=== PATIENT | female | born 1990 | race Caucasian/White ===

== ENCOUNTER 2016-07-20 09:44 | Emergency (ER) | payer OTHER ==
[2016-07-20 10:05] VITALS: RESP 18
[2016-07-20] MEDS ORDERED: DEXAMETHASONE SOD PHOSPHATE 10 MG/ML 1 ML VIAL IM STA (10:52)
[2016-07-20] MEDS ORDERED: AMOXIC-POT CLAV 875-125MG 1 EACH TAB PO STA (10:52)
--- NOTE | 2016-07-20 10:53 | ED ---
General Adult HPI - General Chief complaint: ENT Stated complaint: Hx strep throat, not getting better Time Seen by Provider: 07/20/16 10:35 Source: patient, RN notes reviewed, old records reviewed Mode of arrival: ambulatory Limitations: no limitations - History of Present Illness Initial comments: This is a 26-year-old female here for evaluation of sore throat. Patient has severe sore throat, occasional inconsistent fever, difficulty with swallow. No medical history no travel history. Patient is recent diagnosis of strep throat as well as formal diagnosis of strep throat with positive strep test. Patient states she took] as directed with no improvement. She has no ALLERGIES. She has been taking antibiotic as prescribed - Related Data Previous Rx's Medication Instructions Recorded Amoxicillin/Potassium Clav 1 tab PO Q12HR #20 tab 07/20/16 [Augmentin 875-125 Tablet] Allergies Allergy/AdvReac Type Severity Reaction Status Date / Time No Known Allergies Allergy Verified 07/20/16 10:05 Review of Systems ROS Statement: Those systems with pertinent positive or pertinent negative responses have been documented in the HPI. ROS Other: All systems not noted in ROS Statement are negative. Past Medical History Past Medical History: Asthma History of Any Multi-Drug Resistant Organisms: None Reported Additional Past Surgical History / Comment(s): foreign body removal from (R) foot Past Psychological History: ADD/ADHD Smoking Status: Former smoker Past Alcohol Use History: Rare Past Drug Use History: None Reported General Exam Limitations: no limitations General appearance: alert, in no apparent distress Head exam: Present: atraumatic, normocephalic, normal inspection Eye exam: Present: normal appearance, PERRL, EOMI. Absent: scleral icterus, conjunctival injection, periorbital swelling ENT exam: Present: normal exam, mucous membranes moist Neck exam: Present: normal inspection. Absent: tenderness, meningismus, lymphadenopathy Respiratory exam: Present: normal lung sounds bilaterally. Absent: respiratory distress, wheezes, rales, rhonchi, stridor Cardiovascular Exam: Present: regular rate, normal rhythm, normal heart sounds. Absent: systolic murmur, diastolic murmur, rubs, gallop, clicks GI/Abdominal exam: Present: soft, normal bowel sounds. Absent: distended, tenderness, guarding, rebound, rigid Extremities exam: Present: normal inspection, full ROM, normal capillary refill. Absent: tenderness, pedal edema, joint swelling, calf tenderness Back exam: Present: normal inspection Neurological exam: Present: alert, oriented X3, CN II-XII intact Psychiatric exam: Present: normal affect, normal mood Skin exam: Present: warm, dry, intact, normal color. Absent: rash Course Vital Signs 07/20/16 07/20/16 10:03 11:10 Temperature 98.1 F 98.0 F Pulse Rate 93 75 Respiratory 18 18 Rate Blood Pressure 115/74 115/69 O2 Sat by Pulse 98 100 Oximetry - Reevaluation(s) Reevaluation #1: 07/20/16 12:52 We will switch patient's antibiotic to Augmentin and patient can be discharged home Medical Decision Making - Medical Decision Making 26 female year prevention of fever sore throat. No trismus on exam, no significant edema Patient with transferred antibiotic, patient did have positive stress Test will be discharged home Disposition Clinical Impression: Streptococcal sore throat Disposition: HOME SELF-CARE Condition: Good Instructions: Strep Throat (ED) Prescriptions: Amoxicillin/Potassium Clav [Augmentin 875-125 Tablet] 1 tab PO Q12HR #20 tab Referrals: None,Stated [Primary Care Provider] - 1-2 days
[2016-07-20 11:12] VITALS: BP 115/69; PULSE 75; TEMP 98
== END 2016-07-20 11:11 | disposition home or self-care (01) ==
LOC: EC 09:44
DX: J02.0 Streptococcal pharyngitis (principal); Z87.891 Personal history of nicotine dependence
CPT/HCPCS: 99283; 96372; J1100

== ENCOUNTER 2016-10-29 20:05 | Emergency (ER) | payer OTHER ==
[2016-10-29 21:10] VITALS: TEMP 98.2
[2016-10-29] MEDS ORDERED: SODIUM CHLORIDE 0.9% 1,000 ML IV STA (21:32)
[2016-10-29] MEDS ORDERED: ONDANSETRON 4 MG/2 ML VIAL IVP STA (21:32)
[2016-10-29] MEDS ORDERED: MORPHINE SULFATE 4 MG/ML SYRINGE IV STA (21:32)
--- NOTE | 2016-10-29 22:04 | ED ---
Chest Pain HPI - General Chief Complaint: Chest Pain Stated Complaint: Chest Pain Time Seen by Provider: 10/29/16 21:10 Source: patient Mode of arrival: ambulatory Limitations: no limitations - History of Present Illness Initial Comments: 26 years old female presented with the chest pain, started 2 PM today, at that time she was at work. Chest pain is located on the left side of the chest she also noticed some some tingling in the left arm and chest pain is worse with deep breaths. She. Had a chest pain episode she has no prior history of heart disease. She does smoke and no history of control pills as such but she does have an IUD. Does use Adderall daily for and smokes pot regularly she denies any cocaine or any other street drugs use over the last few days she had a nausea. Denies any vomiting no cold sweats hard to head or disease at the age of 63 and mom is - Related Data Home Medications Medication Instructions Recorded Confirmed Dextroamphetamine/Amphetamine 15 mg PO QAM 10/29/16 10/29/16 [Adderall Xr] Dextroamphetamine/Amphetamine 10 mg PO DAILY@1400 PRN 10/29/16 10/29/16 [Adderall] Allergies Allergy/AdvReac Type Severity Reaction Status Date / Time No Known Allergies Allergy Verified 10/29/16 21:39 Review of Systems ROS Statement: Those systems with pertinent positive or pertinent negative responses have been documented in the HPI. ROS Other: All systems not noted in ROS Statement are negative. EKG Findings - EKG Comments: EKG Findings:: Him EKG is sinus tachycardia ventricular rate of 107 [place] interval is 134 QRS duration is 78 QT/QTc is [id number] EKG revealed T-wave inversion laterally [address] elevation or ST depression noticed H Past Medical History Past Medical History: Asthma History of Any Multi-Drug Resistant Organisms: None Reported Additional Past Surgical History / Comment(s): foreign body removal from (R) foot Past Psychological History: ADD/ADHD Smoking Status: Current every day smoker Past Alcohol Use History: Rare Past Drug Use History: None Reported General Exam - General Exam Comments Initial Comments: General: The patient is awake and alert, in no distress, and does not appear acutely ill. Skin: Skin is warm and dry and no rashes or lesions are noted. Eye: Pupils are equal, round and reactive to light, extra-ocular movements are intact; there is normal conjunctiva bilaterally. Ears, nose, mouth and throat: There are moist mucous membranes and no oral lesions. Neck: The neck is supple, there is no tenderness or JVD. Cardiovascular: There is a regular rate and rhythm. No murmur, rub or gallop is appreciated. Respiratory: To auscultation bilateral, no wheezing no rhonchi no distress respiratory pena noticed Gastrointestinal: Soft, non-distended, non-tender abdomen without masses or organomegaly noted. There is no rebound or guarding present. Bowel sounds are unremarkable. Back: There is no tenderness to palpation in the midline. There is no obvious deformity. Musculoskeletal: Normal ROM, no tenderness, There is no pedal edema. There is no calf tenderness or swelling. No cords were appreciated. Neurological: CN II-XII intact, Cranial nerves III through XII are intact. There are no obvious motor or sensory deficits. Coordination appears grossly intact. Speech is normal. Psychiatric: Cooperative, appropriate mood & affect, normal judgment. Limitations: no limitations Course Vital Signs 10/29/16 10/29/16 21:08 23:09 Temperature 98.2 F Pulse Rate 104 H 80 Respiratory 20 20 Rate Blood Pressure 123/79 124/72 O2 Sat by Pulse 99 100 Oximetry Was reassessed at 1241, her CBC, d-dimer, troponin, EKG, compressive metabolic panel, chest x-ray are all negative, these findings were discussed with the patient. She was offered to be observed in the inpatient for serial cardiac markers but she said she preferred to go home she was advised to follow-up with cardiology associates as outpatient she agreed with Disposition Clinical Impression: Chest pain, Chest pain, pleuritic Disposition: HOME SELF-CARE Instructions: Chest Pain (ED), Costochondritis (ED) Additional Instructions: Advised Motrin 600 mg by mouth 3 times a day when necessary asthma costochondritis and also advised to see cardiology associates make sure there is no cardiac recently chest pain Referrals: Maya Haas MD [Primary Care Provider] - 1-2 days Coleen Guzman MD [STAFF PHYSICIAN] - 1-2 days
[2016-10-29 22:20] LABS: Basophils # (A) 0.1 k/uL (0-0.2); Basophils % (A) 1 %; CH 28.9; CHCM 34.6; Eosinophils # (A) 0.1 k/uL (0-0.7); Eosinophils % (A) 1 %; HCT 40.2 % (34.0-46.0); HDW 2.56; Luc # (Auto) 0.14; Luc % (Auto) 1; Lymphocytes # (A) 2.4 k/uL (1.0-4.8); Lymphocytes % (A) 25 %; MCH 29.2 pg (25.0-35.0); MCHC 34.8 g/dL (31.0-37.0); MCV 83.8 fL (80.0-100.0); Mean Platelet Volume 7.1; Monocytes # (A) 0.4 k/uL (0-1.0); Monocytes % (A) 4 %; Neutrophils # (A) 6.8 k/uL (1.3-7.7); Neutrophils % (A) 69 %; RDW 12.7 % (11.5-15.5); WBC 9.9 k/uL (3.8-10.6); WBC (Perox) 10.44
[2016-10-29 22:32] LABS: ALT 24 U/L (9-52); AST 17 U/L (14-36); Alkaline Phosphatase 47 U/L (38-126); Anion Gap 10 mmol/L; Blood Urea Nitrogen 8 mg/dL (7-17); Calcium 9.5 mg/dL (8.4-10.2); Carbon Dioxide 25 mmol/L (22-30); Chloride 107 mmol/L (98-107); Glucose 92 mg/dL (74-99); Non-African American GFR(MDRD) >60 (>60 ml/min/1.73 sqM); Sodium 142 mmol/L (137-145); Total Bilirubin 0.5 mg/dL (0.2-1.3)
[2016-10-29 22:36] LABS: INR 1.2 (<1.2); Partial Thromboplastin Time 26.7 sec (22.0-30.0); Prothrombin Time 11.5 sec (9.0-12.0)
[2016-10-29 22:43] LABS: Creatine Kinase 55 U/L (30-135)
[2016-10-29 22:56] LABS: Creatine Kinase MB <0.2 ng/mL (0.0-2.4); Troponin I <0.012 ng/mL (0.000-0.034)
--- NOTE | 2016-10-29 23:03 | XR ---
EXAM: XR Chest, 2 Views CLINICAL HISTORY: Reason: Chest Pain TECHNIQUE: Frontal and lateral views of the chest. COMPARISON: 08/08/14. FINDINGS: Lungs: Unremarkable. No consolidation. Pleural space: Unremarkable. No pneumothorax. Heart: Unremarkable. No cardiomegaly. Mediastinum: Unremarkable. Bones/joints: Minimal thoracic levocurvature may be positional. IMPRESSION: No evidence of acute pulmonary disease
[2016-10-30 01:05] VITALS: BP 118/62; PULSE 70; RESP 18
== END 2016-10-30 01:05 | disposition home or self-care (01) ==
LOC: EC 20:05
DX: R07.89 Other chest pain (principal); R11.0 Nausea; R20.2 Paresthesia of skin; F90.9 Attention-deficit hyperactivity disorder, unspecified type; F17.290 Nicotine dependence, other tobacco product, uncomplicated; Z79.899 Other long term (current) drug therapy; Z97.5 Presence of (intrauterine) contraceptive device
CPT/HCPCS: 99285; 96374; 96375; 96361 ×3; 36415; 93005; 85379; 80053; 82550; 82553; 83735; 84484; 85025; 85610; 85730; 71020; J2270; J2405

== ENCOUNTER 2016-11-12 16:58 | Emergency (ER) | payer OTHER ==
[2016-11-12] MEDS ORDERED: SODIUM CHLORIDE 0.9% 1,000 ML IV STA ×2 (18:34)
[2016-11-12] MEDS ORDERED: ACETAMINOPHEN TAB 500 MG TAB PO STA (18:34)
[2016-11-12] MEDS ORDERED: ORPHENADRINE 30 MG/ML 2 ML VIAL IVP STA (18:35)
--- NOTE | 2016-11-12 18:40 | ED ---
Fever HPI - General Chief Complaint: Fever Stated Complaint: Fever Time Seen by Provider: 11/12/16 18:21 Source: patient, RN notes reviewed, old records reviewed Mode of arrival: ambulatory Limitations: no limitations - History of Present Illness Initial Comments: this is a 26-year-old female presents emergency Department chief complaint of sore throat and fever for the past few days. Patient reports she woke up this morning and had a severe headache and ports that she had a stiff neck. Patient states that she's been taking ibuprofen and Tylenol every 4-6 hours. Patient states that she has had no nausea or vomiting. She reports that she is a smoker , states that she has a chronic smoker's cough. Denies any change in sputum. Patient states that she has a worse headache with bright lights and movements of her neck. Patient denies any history of sick contacts. Patient reports no new notices of rashes, and she reports that she's had all of her childhood vaccines. - Related Data Home Medications Medication Instructions Recorded Confirmed Dextroamphetamine/Amphetamine 15 mg PO QAM 10/29/16 10/29/16 [Adderall Xr] Dextroamphetamine/Amphetamine 10 mg PO DAILY@1400 PRN 10/29/16 10/29/16 [Adderall] Previous Rx's Medication Instructions Recorded Acetaminophen [Tylenol 8 Hour] 650 mg PO QID #20 tablet.er 11/12/16 Ibuprofen [Motrin] 600 mg PO Q6HR PRN #20 tab 11/12/16 Allergies Allergy/AdvReac Type Severity Reaction Status Date / Time No Known Allergies Allergy Verified 11/12/16 17:19 Review of Systems ROS Statement: Those systems with pertinent positive or pertinent negative responses have been documented in the HPI. ROS Other: All systems not noted in ROS Statement are negative. Past Medical History Past Medical History: Asthma History of Any Multi-Drug Resistant Organisms: None Reported Additional Past Surgical History / Comment(s): foreign body removal from (R) foot Past Psychological History: ADD/ADHD Smoking Status: Current every day smoker Past Alcohol Use History: Rare Past Drug Use History: Marijuana General Exam - General Exam Comments Initial Comments: this is a 26-year-old female. patient appears in mild discomfort, she is showing signs photophobia keeping her eyes closed during the exam. Limitations: no limitations General appearance: alert, in no apparent distress Head exam: Present: atraumatic, normocephalic, normal inspection Eye exam: Present: normal appearance ENT exam: Present: normal exam, mucous membranes moist Neck exam: Present: normal inspection, tenderness (patient reports tenderness to palpation over the posterior spine. Patient does have a positive Kernig sign.). Absent: meningismus, lymphadenopathy Respiratory exam: Present: normal lung sounds bilaterally. Absent: respiratory distress, wheezes, rales, rhonchi, stridor Cardiovascular Exam: Present: regular rate, normal rhythm, normal heart sounds. Absent: systolic murmur, diastolic murmur, rubs, gallop, clicks GI/Abdominal exam: Present: soft, normal bowel sounds. Absent: distended, tenderness, guarding, rebound, rigid Extremities exam: Present: normal inspection, full ROM, normal capillary refill. Absent: tenderness, pedal edema, joint swelling, calf tenderness Back exam: Present: normal inspection Neurological exam: Present: alert, oriented X3, CN II-XII intact Psychiatric exam: Present: normal affect, normal mood Skin exam: Present: warm, dry, intact, normal color. Absent: rash Course Vital Signs 11/12/16 11/12/16 11/12/16 17:17 19:18 22:12 Temperature 99.0 F 98.7 F 98 F Pulse Rate 107 H 74 60 Respiratory 20 18 16 Rate Blood Pressure 134/88 120/77 128/70 O2 Sat by Pulse 100 100 100 Oximetry Medical Decision Making - Medical Decision Making this is a 26-year-old female presents emergency Department chief complaint of sore throat and fever for the past few days. Patient reports she woke up this morning and had a severe headache and ports that she had a stiff neck. Patient states that she's been taking ibuprofen and Tylenol every 4-6 hours. Patient states that she has had no nausea or vomiting. She reports that she is a smoker , states that she has a chronic smoker's cough. Patient does have significant neck tenderness, and questionable positive Kernig test. Patient given IV fluids and medicaiotn. She reports that she is feeling somewhat better after the toradol. Patient case discussed with Dr. Brand whom also examined the patient. At this time, with reevaluation and negative Brudzinski and Kernig sign , and patient lab wortk within normal limits. Patient can be discharged. We discussed possiblilty of meningitis, patient offered LP but patient reports that she does not want lumbar puncture. Patient informed that if that is the case, this is mostly viral and will transcend its course. Discussed strict return parameters and family agrees tot reatment plan and will comply. - Lab Data Result diagrams: 11/12/16 18:40 11/12/16 18:40 Lab Results 11/12/16 11/12/16 11/12/16 Range/Units 18:40 18:40 18:40 WBC 11.0 H (3.8-10.6) k/uL RBC 4.91 (3.80-5.40) m/uL Hgb 14.2 (11.4-16.0) gm/dL Hct 43.0 (34.0-46.0) % MCV 87.7 (80.0-100.0) fL MCH 29.0 (25.0-35.0) pg MCHC 33.0 (31.0-37.0) g/dL RDW 12.9 (11.5-15.5) % Plt Count 321 (150-450) k/uL Neutrophils % 66 % Lymphocytes % 27 % Monocytes % 4 % Eosinophils % 1 % Basophils % 1 % Neutrophils # 7.2 (1.3-7.7) k/uL Lymphocytes # 3.0 (1.0-4.8) k/uL Monocytes # 0.4 (0-1.0) k/uL Eosinophils # 0.1 (0-0.7) k/uL Basophils # 0.1 (0-0.2) k/uL Sodium 141 (137-145) mmol/L Potassium 4.5 (3.5-5.1) mmol/L Chloride 110 H (98-107) mmol/L Carbon Dioxide 20 L (22-30) mmol/L Anion Gap 11 mmol/L BUN 9 (7-17) mg/dL Creatinine 0.68 (0.52-1.04) mg/dL Est GFR (MDRD) Af Amer >60 (>60 ml/min/1.73 sqM) Est GFR (MDRD) Non-Af >60 (>60 ml/min/1.73 sqM) Glucose 79 (74-99) mg/dL Plasma Lactic Acid Vicente (0.7-2.0) mmol/L Calcium 9.2 (8.4-10.2) mg/dL Total Bilirubin 0.3 (0.2-1.3) mg/dL AST 20 (14-36) U/L ALT 24 (9-52) U/L Alkaline Phosphatase 46 (38-126) U/L Total Protein 7.4 (6.3-8.2) g/dL Albumin 4.4 (3.5-5.0) g/dL HCG, Qual Urine Color Urine Appearance (Clear) Urine pH (5.0-8.0) Ur Specific Stewart (1.001-1.035) Urine Protein (Negative) Urine Glucose (UA) (Negative) Urine Ketones (Negative) Urine Blood (Negative) Urine Nitrite (Negative) Urine Bilirubin (Negative) Urine Urobilinogen (<2.0) mg/dL Ur Leukocyte Esterase (Negative) Heterophile Antibody Negative (Negative) Influenza Type A RNA (Not Detectd) Influenza Type B (PCR) (Not Detectd) Group A Strep Rapid (Negative) 11/12/16 11/12/16 11/12/16 Range/Units 18:40 18:40 18:40 WBC (3.8-10.6) k/uL RBC (3.80-5.40) m/uL Hgb (11.4-16.0) gm/dL Hct (34.0-46.0) % MCV (80.0-100.0) fL MCH (25.0-35.0) pg MCHC (31.0-37.0) g/dL RDW (11.5-15.5) % Plt Count (150-450) k/uL Neutrophils % % Lymphocytes % % Monocytes % % Eosinophils % % Basophils % % Neutrophils # (1.3-7.7) k/uL Lymphocytes # (1.0-4.8) k/uL Monocytes # (0-1.0) k/uL Eosinophils # (0-0.7) k/uL Basophils # (0-0.2) k/uL Sodium (137-145) mmol/L Potassium (3.5-5.1) mmol/L Chloride (98-107) mmol/L Carbon Dioxide (22-30) mmol/L Anion Gap mmol/L BUN (7-17) mg/dL Creatinine (0.52-1.04) mg/dL Est GFR (MDRD) Af Amer (>60 ml/min/1.73 sqM) Est GFR (MDRD) Non-Af (>60 ml/min/1.73 sqM) Glucose (74-99) mg/dL Plasma Lactic Acid Vicente 1.3 (0.7-2.0) mmol/L Calcium (8.4-10.2) mg/dL Total Bilirubin (0.2-1.3) mg/dL AST (14-36) U/L ALT (9-52) U/L Alkaline Phosphatase (38-126) U/L Total Protein (6.3-8.2) g/dL Albumin (3.5-5.0) g/dL HCG, Qual Not Detected Urine Color Yellow Urine Appearance Clear (Clear) Urine pH 7.0 (5.0-8.0) Ur Specific Stewart 1.014 (1.001-1.035) Urine Protein Negative (Negative) Urine Glucose (UA) Negative (Negative) Urine Ketones Negative (Negative) Urine Blood Negative (Negative) Urine Nitrite Negative (Negative) Urine Bilirubin Negative (Negative) Urine Urobilinogen <2.0 (<2.0) mg/dL Ur Leukocyte Esterase Negative (Negative) Heterophile Antibody (Negative) Influenza Type A RNA (Not Detectd) Influenza Type B (PCR) (Not Detectd) Group A Strep Rapid (Negative) 11/12/16 11/12/16 Range/Units 18:53 18:53 WBC (3.8-10.6) k/uL RBC (3.80-5.40) m/uL Hgb (11.4-16.0) gm/dL Hct (34.0-46.0) % MCV (80.0-100.0) fL MCH (25.0-35.0) pg MCHC (31.0-37.0) g/dL RDW (11.5-15.5) % Plt Count (150-450) k/uL Neutrophils % % Lymphocytes % % Monocytes % % Eosinophils % % Basophils % % Neutrophils # (1.3-7.7) k/uL Lymphocytes # (1.0-4.8) k/uL Monocytes # (0-1.0) k/uL Eosinophils # (0-0.7) k/uL Basophils # (0-0.2) k/uL Sodium (137-145) mmol/L Potassium (3.5-5.1) mmol/L Chloride (98-107) mmol/L Carbon Dioxide (22-30) mmol/L Anion Gap mmol/L BUN (7-17) mg/dL Creatinine (0.52-1.04) mg/dL Est GFR (MDRD) Af Amer (>60 ml/min/1.73 sqM) Est GFR (MDRD) Non-Af (>60 ml/min/1.73 sqM) Glucose (74-99) mg/dL Plasma Lactic Acid Vicente (0.7-2.0) mmol/L Calcium (8.4-10.2) mg/dL Total Bilirubin (0.2-1.3) mg/dL AST (14-36) U/L ALT (9-52) U/L Alkaline Phosphatase (38-126) U/L Total Protein (6.3-8.2) g/dL Albumin (3.5-5.0) g/dL HCG, Qual Urine Color Urine Appearance (Clear) Urine pH (5.0-8.0) Ur Specific Stewart (1.001-1.035) Urine Protein (Negative) Urine Glucose (UA) (Negative) Urine Ketones (Negative) Urine Blood (Negative) Urine Nitrite (Negative) Urine Bilirubin (Negative) Urine Urobilinogen (<2.0) mg/dL Ur Leukocyte Esterase (Negative) Heterophile Antibody (Negative) Influenza Type A RNA Not Detected (Not Detectd) Influenza Type B (PCR) Not Detected (Not Detectd) Group A Strep Rapid Negative (Negative) - Radiology Data Radiology results: report reviewed Chest x-ray is negative for any acute cardio pulmonary process. Disposition Clinical Impression: Pharyngitis, Neck pain Disposition: HOME SELF-CARE Condition: Good Instructions: Fever in Adults (ED) Additional Instructions: Pt advised to follow-up tomorrow with her primary care provider. Patient is continue to dose Motrin Tylenol for pain. At this time has been remaining hydrated. Return to the emergency department if any alarming signs or symptoms occur. Prescriptions: Acetaminophen [Tylenol 8 Hour] 650 mg PO QID #20 tablet.er Ibuprofen [Motrin] 600 mg PO Q6HR PRN #20 tab PRN Reason: Pain Referrals: Maya Haas MD [Primary Care Provider] - 1-2 days Time of Disposition: 21:44
[2016-11-12 18:53] LABS: Basophils # (A) 0.1 k/uL (0-0.2); Basophils % (A) 1 %; CH 28.9; Eosinophils # (A) 0.1 k/uL (0-0.7); Eosinophils % (A) 1 %; HDW 2.51; HGB 14.2 gm/dL (11.4-16.0); Luc % (Auto) 2; Lymphocytes % (A) 27 %; MCV 87.7 fL (80.0-100.0); Mean Platelet Volume 6.9; Monocytes # (A) 0.4 k/uL (0-1.0); Monocytes % (A) 4 %; Neutrophils # (A) 7.2 k/uL (1.3-7.7); Neutrophils % (A) 66 %; RBC 4.91 m/uL (3.80-5.40); RDW 12.9 % (11.5-15.5); WBC (Perox) 10.65
[2016-11-12 18:59] LABS: Appearance,Urine Clear (Clear); Bilirubin,Urine Negative (Negative); Glucose,Urine (UA) Negative (Negative); Ketones,Urine Negative (Negative); Leukocyte Esterase,Urine Negative (Negative); Nitrite,Urine Negative (Negative); Protein,Urine Negative (Negative); Specific Gravity,Urine 1.014 (1.001-1.035); UA Billing (MACRO vs. MICRO) CHEM; Urobilinogen,Urine <2.0 mg/dL (<2.0)
[2016-11-12 19:03] LABS: ALT 24 U/L (9-52); AST 20 U/L (14-36); Alkaline Phosphatase 46 U/L (38-126); Anion Gap 11 mmol/L; Blood Urea Nitrogen 9 mg/dL (7-17); Calcium 9.2 mg/dL (8.4-10.2); Carbon Dioxide 20 mmol/L (22-30); Chloride 110 mmol/L (98-107); Glucose 79 mg/dL (74-99); Non-African American GFR(MDRD) >60 (>60 ml/min/1.73 sqM); Potassium 4.5 mmol/L (3.5-5.1); Sodium 141 mmol/L (137-145); Total Bilirubin 0.3 mg/dL (0.2-1.3); Total Protein 7.4 g/dL (6.3-8.2)
--- NOTE | 2016-11-12 19:46 | XR ---
EXAMINATION TYPE: XR chest 2V DATE OF EXAM: 11/12/2016 COMPARISON: 10/29/16 HISTORY: Chest pain TECHNIQUE: Frontal and lateral views of the chest are obtained. FINDINGS: There is no focal air space opacity. No evidence for pneumothorax. No pleural effusion. The cardiac silhouette size is within normal limits. The osseous structures are grossly intact. IMPRESSION: 1. No acute cardiopulmonary process.
[2016-11-12] MEDS ORDERED: KETOROLAC 30 MG/ML 1 ML VIAL IVP STA (20:30)
[2016-11-12] MEDS ORDERED: SODIUM CHLORIDE 0.9% 1,000 ML IV ONE (20:30)
[2016-11-12 22:15] VITALS: BP 128/70; PULSE 60; RESP 16; TEMP 98
== END 2016-11-12 22:12 | disposition home or self-care (01) ==
LOC: EC 16:58
DX: J02.9 Acute pharyngitis, unspecified (principal); M54.2 Cervicalgia; H53.143 Visual discomfort, bilateral; J41.0 Simple chronic bronchitis; R50.9 Fever, unspecified; F90.9 Attention-deficit hyperactivity disorder, unspecified type; F17.200 Nicotine dependence, unspecified, uncomplicated; Z79.899 Other long term (current) drug therapy
CPT/HCPCS: 99284 ×2; 96374 ×2; 96375 ×2; 96361 ×4; 36415; 80053; 83605; 85025; 86308; 81003; 84703; 87040; 87081; 87430; 87502; 71020; J2360; J1885

== ENCOUNTER 2016-11-17 16:40 | Observation (INO) | payer OTHER ==
[2016-11-17] MEDS ORDERED: IBUPROFEN 600 MG TAB PO STA (17:31)
[2016-11-17] MEDS ORDERED: ACETAMINOPHEN TAB 500 MG TAB PO STA (17:31)
[2016-11-17] MEDS ORDERED: RX INFO: IV CONTRAST WAS GIVEN 1 EACH MISC MISCELLANE PRN (17:33)
[2016-11-17] MEDS ORDERED: ORPHENADRINE 30 MG/ML 2 ML VIAL IVP STA (17:34)
--- NOTE | 2016-11-17 17:38 | ED ---
General Adult HPI <Jefferson Arevalo P - Last Filed: 11/17/16 20:44> - General Source: patient, RN notes reviewed, old records reviewed Mode of arrival: ambulatory Limitations: no limitations <Deann Dye - Last Filed: 11/18/16 04:29> - General Chief complaint: Headache Stated complaint: Sent by [facility] for CT and Lumbar puncture Time Seen by Provider: 11/17/16 17:23 - History of Present Illness Initial comments: This is a 26-year-old female presenting to the emergency department and to be sent in by primary care physician Dr. Espino. Patient is here for fevers for the past 10 days. Patient was seen in the emergency department on 11 12, with complaint of pharyngitis and neck pain. That time she was offered a lumbar puncture but did decline. At this time patient reports that which she is by her primary care she also been noticing she's had a few days of abdominal pain. Patient reports she's had nausea but no specific vomiting. She last ate around noon. She also complaints of continued sore throat but her neck pain seems to be less severe than it was earlier in the week. Patient states that she has not had any recent Motrin or Tylenol. Patient was sent in for a CT of her brain with and without contrast and CT abdomen and pelvis as well as a lumbar puncture. (Deann Dye) - Related Data Home Medications Medication Instructions Recorded Confirmed Dextroamphetamine/Amphetamine 15 mg PO QAM 10/29/16 11/18/16 [Adderall Xr] Dextroamphetamine/Amphetamine 10 mg PO DAILY@1400 PRN 10/29/16 11/18/16 [Adderall] Previous Rx's Medication Instructions Recorded Ibuprofen [Motrin] 600 mg PO Q6HR PRN #20 tab 11/12/16 Allergies Allergy/AdvReac Type Severity Reaction Status Date / Time No Known Allergies Allergy Verified 11/18/16 00:44 Review of Systems ROS Other: All systems not noted in ROS Statement are negative. <Jefferson Arevalo - Last Filed: 11/17/16 20:44> ROS Other: All systems not noted in ROS Statement are negative. <Deann Dye - Last Filed: 11/18/16 04:29> ROS Statement: Those systems with pertinent positive or pertinent negative responses have been documented in the HPI. Past Medical History Past Medical History: Asthma History of Any Multi-Drug Resistant Organisms: None Reported Additional Past Surgical History / Comment(s): foreign body removal from (R) foot Past Psychological History: ADD/ADHD Smoking Status: Current every day smoker Past Alcohol Use History: Rare Past Drug Use History: Marijuana - Past Family History Mother Family Medical History: No Reported History Father Family Medical History: No Reported History <Deann Dye - Last Filed: 11/18/16 04:29> General Exam <Jefferson Arevalo - Last Filed: 11/17/16 20:44> Limitations: no limitations General appearance: alert, in no apparent distress Head exam: Present: atraumatic, normocephalic, normal inspection Eye exam: Present: normal appearance, PERRL, EOMI. Absent: scleral icterus, conjunctival injection, periorbital swelling ENT exam: Present: normal exam, mucous membranes moist. Absent: normal oropharynx (Erythematous oropharynx. No exudates. Patient has history of tonsillectomy.) Neck exam: Present: normal inspection, tenderness (Patient has tenderness over lateral paraspinal muscles. ). Absent: meningismus, lymphadenopathy Respiratory exam: Present: normal lung sounds bilaterally. Absent: respiratory distress, wheezes, rales, rhonchi, stridor Cardiovascular Exam: Present: regular rate, normal rhythm, normal heart sounds. Absent: systolic murmur, diastolic murmur, rubs, gallop, clicks GI/Abdominal exam: Present: soft, tenderness (Left upper quadrant and left lower quadrant tenderness.), normal bowel sounds. Absent: distended, guarding, rebound, rigid Extremities exam: Present: normal inspection, full ROM, normal capillary refill. Absent: tenderness, pedal edema, joint swelling, calf tenderness Back exam: Present: normal inspection Neurological exam: Present: alert, oriented X3, CN II-XII intact, normal gait Expanded Patient oriented to: Present: person, place, time Speech: Present: fluid speech Cranial nerves: EOM's Intact: Normal, Facial Sensation: Normal Cerebellar function: Finger to Nose: Normal Upper motor neuron: Pronator Drift: Normal Sensory exam: Upper Extremity Light Touch: Normal, Lower Extremity Light Touch: Normal Motor strength exam: RUE: 5, LUE: 5, RLE: 5, LLE: 5 Eye Response: (4) open spontaneously Motor Response: (6) obeys commands Verbal Response: (5) oriented Isa Total: 15 Psychiatric exam: Present: normal affect, normal mood Skin exam: Present: warm, dry, intact, normal color. Absent: rash <Deann Dye - Last Filed: 11/18/16 04:29> - General Exam Comments Initial Comments: This is a 26-year-old female. Patient is alert and oriented 3. Patient does not appear to be in any acute distress. She does appear to be somewhat discomfortable. (Deann Dye) Procedures - Lumbar Puncture Consent Obtained: written consent Time Out Performed: Yes Indication for Procedure: other (meningitis r/o) Patient Position: sitting upright/leaning forward Skin Prep: Povidone-Iodine 1% Local Anesthetic Used: Lidocaine 2% Spinal Needle Gauge: 20G Spinal Needle Length: 4in Fluid Initially Obtained: clear Complications: none Patient Tolerated Procedure: well <Jefferson Arevalo - Last Filed: 11/17/16 20:44> <Deann Dye - Last Filed: 11/18/16 04:29> - Lumbar Puncture Additional Comments: I was involved in patient care only to perform lumbar puncture as needed, patient has a history of fever, headache, elevated white blood cell count. Patient sent to the ER to have lumbar puncture done. I was not involved in initial assessment or disposition or other decision making regarding pt's care. -Jefferson Arevalo D.O. (Jefferson Arevalo) Medical Decision Making - Lab Data Result diagrams: 11/17/16 18:10 11/17/16 18:10 <Jefferson Arevalo - Last Filed: 11/17/16 20:44> - Lab Data Result diagrams: 11/17/16 18:10 11/17/16 18:10 - Radiology Data Radiology results: report reviewed <Deann Dye - Last Filed: 11/18/16 04:29> - Medical Decision Making 26-year-old field is emergency Department chief complaint of headache, and fevers for the past 10 days. Patient sent in by her primary care doctor to have CT brain and C-spine with contrast as well as a CT abdomen and lab work. The patient was evaluated 4 days ago she did have blood cultures obtained. Those were reviewed to be negative. That time she did elect to not have a lumbar puncture. Today patient's labwork was reviewed and appears to be similar to that was on her initial visit. White blood cell count is elevated at 11.0. Rapid strep and influenza are negative. Heterophile testing was negative that time. Patient does have some tenderness to her neck and some stiffness however no significant Kernig or Brudzinski sign noted today. Patient case discussed with Dr. Jeffery. I started the patient on Rocephin and vancomycin. I did have to involve Dr. Arevalo to perform a lumbar puncture for the patient. She tolerated the procedure well. At this time patient CT brain and abdomen were negative for any significant acute process. Patient will be admitted to Dr. Espino for further evaluation. Pending gram stain and culture of the CSF fluid. Dr. Jeffery discussed Dr. Espino. ([facility] - Lab Data Lab Results 11/17/16 11/17/16 11/17/16 Range/Units 18:02 18:02 18:10 WBC 11.0 H (3.8-10.6) k/uL RBC 4.69 (3.80-5.40) m/uL Hgb 13.8 (11.4-16.0) gm/dL Hct 40.8 (34.0-46.0) % MCV 86.9 (80.0-100.0) fL MCH 29.5 (25.0-35.0) pg MCHC 33.9 (31.0-37.0) g/dL RDW 12.9 (11.5-15.5) % Plt Count 315 (150-450) k/uL Neutrophils % 70 % Lymphocytes % 23 % Monocytes % 3 % Eosinophils % 2 % Basophils % 0 % Neutrophils # 7.7 (1.3-7.7) k/uL Lymphocytes # 2.5 (1.0-4.8) k/uL Monocytes # 0.3 (0-1.0) k/uL Eosinophils # 0.3 (0-0.7) k/uL Basophils # 0.0 (0-0.2) k/uL PT (9.0-12.0) sec INR (<1.2) APTT (22.0-30.0) sec Sodium (137-145) mmol/L Potassium (3.5-5.1) mmol/L Chloride (98-107) mmol/L Carbon Dioxide (22-30) mmol/L Anion Gap mmol/L BUN (7-17) mg/dL Creatinine (0.52-1.04) mg/dL Est GFR (MDRD) Af Amer (>60 ml/min/1.73 sqM) Est GFR (MDRD) Non-Af (>60 ml/min/1.73 sqM) Glucose (74-99) mg/dL Plasma Lactic Acid Vicente (0.7-2.0) mmol/L Calcium (8.4-10.2) mg/dL Magnesium (1.6-2.3) mg/dL Total Bilirubin (0.2-1.3) mg/dL AST (14-36) U/L ALT (9-52) U/L Alkaline Phosphatase (38-126) U/L Total Protein (6.3-8.2) g/dL Albumin (3.5-5.0) g/dL Amylase (30-110) U/L Lipase (23-300) U/L Urine Color Urine Appearance (Clear) Urine pH (5.0-8.0) Ur Specific [place] (1.001-1.035) Urine Protein (Negative) Urine Glucose (UA) (Negative) Urine Ketones (Negative) Urine Blood (Negative) Urine Nitrite (Negative) Urine Bilirubin (Negative) Urine Urobilinogen (<2.0) mg/dL Ur Leukocyte Esterase (Negative) Urine RBC (0-5) /hpf Urine WBC (0-5) /hpf Ur Squamous Epith Cells (0-4) /hpf CSF Tube Number CSF Volume CSF Appearance CSF Color CSF RBC (0-10) u/L CSF Tot Nucleated Cells (0-5) u/L CSF Glucose (40-70) mg/dL CSF Total Protein (12-60) mg/dL Influenza Type A RNA Not Detected (Not Detectd) Influenza Type B (PCR) Not Detected (Not Detectd) Group A Strep Rapid Negative (Negative) 11/17/16 11/17/16 11/17/16 Range/Units 18:10 18:10 18:10 WBC (3.8-10.6) k/uL RBC (3.80-5.40) m/uL Hgb (11.4-16.0) gm/dL Hct (34.0-46.0) % MCV (80.0-100.0) fL MCH (25.0-35.0) pg MCHC (31.0-37.0) g/dL RDW (11.5-15.5) % Plt Count (150-450) k/uL Neutrophils % % Lymphocytes % % Monocytes % % Eosinophils % % Basophils % % Neutrophils # (1.3-7.7) k/uL Lymphocytes # (1.0-4.8) k/uL Monocytes # (0-1.0) k/uL Eosinophils # (0-0.7) k/uL Basophils # (0-0.2) k/uL PT 10.5 (9.0-12.0) sec INR 1.0 (<1.2) APTT 25.3 (22.0-30.0) sec Sodium 140 (137-145) mmol/L Potassium 4.1 (3.5-5.1) mmol/L Chloride 109 H (98-107) mmol/L Carbon Dioxide 22 (22-30) mmol/L Anion Gap 9 mmol/L BUN 11 (7-17) mg/dL Creatinine 0.65 (0.52-1.04) mg/dL Est GFR (MDRD) Af Amer >60 (>60 ml/min/1.73 sqM) Est GFR (MDRD) Non-Af >60 (>60 ml/min/1.73 sqM) Glucose 82 (74-99) mg/dL Plasma Lactic Acid Vicente 0.6 L (0.7-2.0) mmol/L Calcium 9.3 (8.4-10.2) mg/dL Magnesium (1.6-2.3) mg/dL Total Bilirubin 0.2 (0.2-1.3) mg/dL AST 22 (14-36) U/L ALT 37 (9-52) U/L Alkaline Phosphatase 51 (38-126) U/L Total Protein 6.5 (6.3-8.2) g/dL Albumin 3.8 (3.5-5.0) g/dL Amylase (30-110) U/L Lipase (23-300) U/L Urine Color Urine Appearance (Clear) Urine pH (5.0-8.0) Ur Specific [place] (1.001-1.035) Urine Protein (Negative) Urine Glucose (UA) (Negative) Urine Ketones (Negative) Urine Blood (Negative) Urine Nitrite (Negative) Urine Bilirubin (Negative) Urine Urobilinogen (<2.0) mg/dL Ur Leukocyte Esterase (Negative) Urine RBC (0-5) /hpf Urine WBC (0-5) /hpf Ur Squamous Epith Cells (0-4) /hpf CSF Tube Number CSF Volume CSF Appearance CSF Color CSF RBC (0-10) u/L CSF Tot Nucleated Cells (0-5) u/L CSF Glucose (40-70) mg/dL CSF Total Protein (12-60) mg/dL Influenza Type A RNA (Not Detectd) Influenza Type B (PCR) (Not Detectd) Group A Strep Rapid (Negative) 11/17/16 11/17/16 11/17/16 Range/Units 18:10 18:40 20:11 WBC (3.8-10.6) k/uL RBC (3.80-5.40) m/uL Hgb (11.4-16.0) gm/dL Hct (34.0-46.0) % MCV (80.0-100.0) fL MCH (25.0-35.0) pg MCHC (31.0-37.0) g/dL RDW (11.5-15.5) % Plt Count (150-450) k/uL Neutrophils % % Lymphocytes % % Monocytes % % Eosinophils % % Basophils % % Neutrophils # (1.3-7.7) k/uL Lymphocytes # (1.0-4.8) k/uL Monocytes # (0-1.0) k/uL Eosinophils # (0-0.7) k/uL Basophils # (0-0.2) k/uL PT (9.0-12.0) sec INR (<1.2) APTT (22.0-30.0) sec Sodium (137-145) mmol/L Potassium (3.5-5.1) mmol/L Chloride (98-107) mmol/L Carbon Dioxide (22-30) mmol/L Anion Gap mmol/L BUN (7-17) mg/dL Creatinine (0.52-1.04) mg/dL Est GFR (MDRD) Af Amer (>60 ml/min/1.73 sqM) Est GFR (MDRD) Non-Af (>60 ml/min/1.73 sqM) Glucose (74-99) mg/dL Plasma Lactic Acid Vicente (0.7-2.0) mmol/L Calcium (8.4-10.2) mg/dL Magnesium 1.8 (1.6-2.3) mg/dL Total Bilirubin (0.2-1.3) mg/dL AST (14-36) U/L ALT (9-52) U/L Alkaline Phosphatase (38-126) U/L Total Protein (6.3-8.2) g/dL Albumin (3.5-5.0) g/dL Amylase <30 L (30-110) U/L Lipase 153 (23-300) U/L Urine Color Yellow Urine Appearance Clear (Clear) Urine pH 5.0 (5.0-8.0) Ur Specific [place] 1.013 (1.001-1.035) Urine Protein Negative (Negative) Urine Glucose (UA) Negative (Negative) Urine Ketones Negative (Negative) Urine Blood Trace H (Negative) Urine Nitrite Negative (Negative) Urine Bilirubin Negative (Negative) Urine Urobilinogen <2.0 (<2.0) mg/dL Ur Leukocyte Esterase Negative (Negative) Urine RBC <1 (0-5) /hpf Urine WBC <1 (0-5) /hpf Ur Squamous Epith Cells 1 (0-4) /hpf CSF Tube Number 2 CSF Volume 0.5 CSF Appearance Clear CSF Color Colorless CSF RBC 0 (0-10) u/L CSF Tot Nucleated Cells 0 (0-5) u/L CSF Glucose 48 (40-70) mg/dL CSF Total Protein 26 (12-60) mg/dL Influenza Type A RNA (Not Detectd) Influenza Type B (PCR) (Not Detectd) Group A Strep Rapid (Negative) 11/17/16 18:47 EKG shows sinus rhythm. Ventricular rate 66 bpm. [place] interval 134 ms. QRS duration 84. QTC 05/15/2005. No evidence of ST elevation or T-wave inversion. No evidence of atrial or ventricular arrhythmias. (Marnie,Deann) - Radiology Data CT brain and C-spine are negative for any acute process. CT abdomen and pelvis shows some mild atelectasis and lungs were no acute intra-abdominal process. ( Marnie,Deann) Disposition <Jefferson Arevalo - Last Filed: 11/17/16 20:44> Time of Disposition: 22:42 <Deann Dye - Last Filed: 11/18/16 04:29> Clinical Impression: Viral meningitis Disposition: ADMITTED IP TO THIS HOSP Condition: Stable
[2016-11-17] MEDS ORDERED: IV VANCOMYCIN PER PHARMACY 1 EACH MISC MISCELLANE PRN (17:44)
[2016-11-17] MEDS ORDERED: cefTRIAXone 2,000 MG in SODIUM CHLORIDE 0.9% 100 ML IVPB STA (17:46)
[2016-11-17 18:20] LABS: Basophils % (A) 0 %; CH 29.1; CHCM 33.6; Eosinophils # (A) 0.3 k/uL (0-0.7); Eosinophils % (A) 2 %; HCT 40.8 % (34.0-46.0); HDW 2.49; HGB 13.8 gm/dL (11.4-16.0); Luc # (Auto) 0.13; Luc % (Auto) 1; Lymphocytes # (A) 2.5 k/uL (1.0-4.8); Lymphocytes % (A) 23 %; MCH 29.5 pg (25.0-35.0); MCHC 33.9 g/dL (31.0-37.0); MCV 86.9 fL (80.0-100.0); Mean Platelet Volume 6.8; Monocytes # (A) 0.3 k/uL (0-1.0); Monocytes % (A) 3 %; Neutrophils # (A) 7.7 k/uL (1.3-7.7); Neutrophils % (A) 70 %; RBC 4.69 m/uL (3.80-5.40); RDW 12.9 % (11.5-15.5); WBC (Perox) 11.08
[2016-11-17 18:27] LABS: Partial Thromboplastin Time 25.3 sec (22.0-30.0); Prothrombin Time 10.5 sec (9.0-12.0)
[2016-11-17] MEDS ORDERED: VANCOMYCIN 1,750 MG in SODIUM CHLORIDE 0.9% 250 ML IVPB ONE (18:30)
[2016-11-17 18:35] LABS: ALT 37 U/L (9-52); AST 22 U/L (14-36); Alkaline Phosphatase 51 U/L (38-126); Anion Gap 9 mmol/L; Blood Urea Nitrogen 11 mg/dL (7-17); Calcium 9.3 mg/dL (8.4-10.2); Carbon Dioxide 22 mmol/L (22-30); Chloride 109 mmol/L (98-107); Glucose 82 mg/dL (74-99); Non-African American GFR(MDRD) >60 (>60 ml/min/1.73 sqM); Potassium 4.1 mmol/L (3.5-5.1); Sodium 140 mmol/L (137-145); Total Bilirubin 0.2 mg/dL (0.2-1.3); Total Protein 6.5 g/dL (6.3-8.2)
[2016-11-17] MEDS: SODIUM CHLORIDE 0.9% 500 ML IV SCH ×4 (18:36→20:07)
[2016-11-17] MEDS: SODIUM CHLORIDE 0.9% 1,000 ML IV SCH (18:36)
[2016-11-17 18:47] LABS: Amylase <30 U/L (30-110); Magnesium 1.8 mg/dL (1.6-2.3)
[2016-11-17 18:56] LABS: Appearance,Urine Clear (Clear); Bilirubin,Urine Negative (Negative); Glucose,Urine (UA) Negative (Negative); Ketones,Urine Negative (Negative); Leukocyte Esterase,Urine Negative (Negative); Nitrite,Urine Negative (Negative); Particle Count 814; Protein,Urine Negative (Negative); RBC,Urine <1 /hpf (0-5); Specific Gravity,Urine 1.013 (1.001-1.035); Squamous Epithelial Cell,Urine 1 /hpf (0-4); UA Billing (MACRO vs. MICRO) MICRO; Urobilinogen,Urine <2.0 mg/dL (<2.0); WBC,Urine <1 /hpf (0-5)
--- NOTE | 2016-11-17 19:47 | CT ---
EXAMINATION TYPE: CT abdomen pelvis w con DATE OF EXAM: 11/17/2016 COMPARISON: NONE HISTORY: Fever x [address] DLP: 863.60 mGycm Automated exposure control for dose reduction was used. TECHNIQUE: Helical acquisition of images was performed from the lung bases through the pelvis. CONTRAST: Performed without Oral Contrast and with IV Contrast, patient injected with 100 mL of Omnipaque 300. FINDINGS: Lung bases are clear of consolidation. There is mild subsegmental atelectasis at the lung bases. Liver spleen pancreas gallbladder appear normal. Bile ducts are not dilated. There is no adrenal mass . Kidneys show satisfactory contrast opacification. There is no hydronephrosis. There is no retroperi toneal adenopathy. There is no ascites. IUD is noted. There is a small amount of free fluid in the cul-de-sac. Bladder d istends smoothly. I see no pelvic mass. There is no sign of a thickened appendix. Appendix appears no rmal. The bony structures are intact. Uterus is retroverted. IMPRESSION: THERE IS MINIMAL SUBSEGMENTAL ATELECTASIS AT THE LUNG BASES. OTHERWISE NEGATIVE CT SCAN OF THE ABDOME N AND PELVIS. NORMAL APPENDIX. THERE IS TRACE FREE FLUID IN THE CUL-DE-SAC THAT IS PROBABLY PHYSIOLOG IC.
--- NOTE | 2016-11-17 19:48 | XR ---
EXAMINATION TYPE: XR chest 2V DATE OF EXAM: 11/17/2016 COMPARISON: 11/12/2016 HISTORY: Fever TECHNIQUE: Frontal and lateral views of the chest are obtained. FINDINGS: Heart and mediastinum are normal. Lungs are clear. Diaphragm is normal. Bony thorax is int act. IMPRESSION: Normal chest. No change.
--- NOTE | 2016-11-17 19:50 | CT ---
EXAMINATION TYPE: CT brain wo/w con DATE OF EXAM: 11/17/2016 COMPARISON: 01/16/2015 HISTORY: Fever x [address] DLP: 1925.20 mGycm Automated exposure control for dose reduction was used. CONTRAST: Performed without and with IV Contrast, patient injected with 100 mL of Omnipaque 300. FINDINGS: The ventricles and sulci appear normal. There is no mass effect nor midline shift. There is no sign o f intracranial hemorrhage. There is no pathologic enhancement. The calvarium is intact. IMPRESSION: NEGATIVE CT SCAN OF THE BRAIN. NO CHANGE COMPARED TO OLD EXAM.
[2016-11-17 21:52] LABS: Appearance,CSF Clear
[2016-11-17 21:55] LABS: Glucose,CSF 48 mg/dL (40-70)
[2016-11-17] MEDS ORDERED: methylPREDNISolone SOD SUCCI 125 MG/2 ML VIAL IV STA (22:15)
[2016-11-17] MEDS ORDERED: diphenhydrAMINE 50 MG/ML 1 ML VIAL IVP STA (22:15)
[2016-11-17] MEDS ORDERED: ACETAMINOPHEN TAB 325 MG TAB PO PRN (22:42)
[2016-11-17] MEDS ORDERED: NALOXONE 0.4 MG/ML 1 ML VIAL IV PRN (22:42)
[2016-11-17] MEDS ORDERED: IBUPROFEN 400 MG TAB PO PRN (22:42)
[2016-11-17] MEDS ORDERED: ONDANSETRON 4 MG/2 ML VIAL IVP PRN (22:42)
[2016-11-17] MEDS ORDERED: NON-FORMULARY DRUG (Dextroamphetamine/Amphetamine [Adderall] 10 MG) PO PRN (22:44)
[2016-11-17 23:49] VITALS: BMI 39.6
[2016-11-18] MEDS: SODIUM CHLORIDE 0.9% 1,000 ML IV SCH ×2 (02:52→16:25)
[2016-11-18] MEDS: VANCOMYCIN 1,500 MG in SODIUM CHLORIDE 0.9% 250 ML IVPB SCH ×2 (04:14→12:45)
[2016-11-18] MEDS ORDERED: DEXTROAMPHETAMINE PO SCH (09:00)
[2016-11-18] MEDS ORDERED: PANTOPRAZOLE 40 MG/10 ML VIAL IV SCH (09:00)
[2016-11-18] MEDS ORDERED: AMPHETAMINE PO SCH (09:00)
[2016-11-18] MEDS: KETOROLAC 30 MG/ML 1 ML VIAL IVP PRN ×2 (09:26→16:26)
[2016-11-18 12:14] LABS: LDH, Body Fluid Source Body Fluid
--- NOTE | 2016-11-18 18:52 | HP ---
HISTORY AND PHYSICAL CHIEF COMPLAINT: Fever and headaches for a week. HISTORY OF PRESENT ILLNESS: This is the first known admission for this 26-year-old white female. She developed headache and low-grade fever and went to emergency room, where she had an evaluation that did not include a CT of the brain or an LP. Her white count was slightly elevated at 11,000 and they her to go home and that she probably had a viral headache. She has otherwise been in good health. She came to the office feeling worse, with an increased headache but no changes in her vision or hearing or neurologic problems. In the office she had nuchal rigidity. There was concern enough that she should have a CT of the brain to rule out bleeding and a lumbar puncture. She was sent to the emergency room. CT was negative. Her LP demonstrated mononuclear cells. She was admitted with a viral meningoencephalitis REVIEW OF SYSTEMS: She has had no confusion or any other signs or symptoms. She has had no shortness of breath, cough, purulent sputum production, nausea, vomiting, urinary complaints, etc. PAST MEDICAL HISTORY, FAMILY HISTORY, AND PERSONAL AND SOCIAL HISTORIES: Unremarkable. She has had 4 pregnancies and 2 deliveries. She has had no surgery. She does smoke. ALLERGIES: SHE IS NOT ALLERGIC TO ANY MEDICATION. MEDICATIONS: She takes Adderall XR 15 mg once a day and an additional fast-acting 10 mg as needed. PHYSICAL EXAMINATION: Blood pressure 110/76, pulse 78, respiratory rate 14, temperature 99.5. In general she appeared to be flushed and somewhat uncomfortable but in no acute distress. Head, ears, eyes, nose, mouth and throat were otherwise normal. Neck veins were not distended. Lymph nodes were not enlarged. She did have nuchal discomfort on flexing the neck and she was limited in this activity. Chest was clear to auscultation. Cardiac exam was normal, with no murmurs or extra sounds. Abdomen was soft, nontender, without any visceromegaly or masses. Bowel sounds were present. EXTREMITIES: Normal. Neurologically she was intact. 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 PLAN: 1. Bed rest. 2. Antibiotic coverage until full LP studies have returned. MMODL / IJN: [id number] /
--- NOTE | 2016-11-18 19:01 | PN ---
PROGRESS NOTE CHIEF COMPLAINT: Aseptic meningitis. HISTORY OF PRESENT ILLNESS: This lady is doing fairly well. Her headache is slightly better. It is worse when she stands, and this could be a component of a spinal headache. She is otherwise doing well. PHYSICAL EXAM: Vital signs are normal. She is afebrile. Chest is clear. The cardiac exam is normal. Abdomen is soft, nontender. IMPRESSION: 1. Viral meningoencephalitis. 2. Attention deficit disorder. 3. Nicotine abuse. PLAN: 1. Stop antibiotics. 2. Probably home tomorrow. MMODL / IJN: [id number] /
[2016-11-18] MEDS: MORPHINE SULFATE 4 MG/ML SYRINGE IV PRN (21:17)
[2016-11-19] MEDS: KETOROLAC 30 MG/ML 1 ML VIAL IVP PRN ×2 (00:16→06:18)
[2016-11-19] MEDS: SODIUM CHLORIDE 0.9% 1,000 ML IV SCH ×2 (00:25→07:56)
[2016-11-19] MEDS: MORPHINE SULFATE 4 MG/ML SYRINGE IV PRN ×3 (00:51→10:05)
[2016-11-19 07:07] LABS: Anion Gap 7 mmol/L; Blood Urea Nitrogen 7 mg/dL (7-17); Calcium 8.2 mg/dL (8.4-10.2); Carbon Dioxide 19 mmol/L (22-30); Chloride 116 mmol/L (98-107); Glucose 90 mg/dL (74-99); Non-African American GFR(MDRD) >60 (>60 ml/min/1.73 sqM); Sodium 142 mmol/L (137-145)
[2016-11-19] MEDS ORDERED: PANTOPRAZOLE 40 MG TABLET PO SCH (07:30)
[2016-11-19 08:50] VITALS: BP 106/55; PULSE 69; RESP 24; TEMP 98.3
[2016-11-19] MEDS ORDERED: VANCOMYCIN TROUGH DUE 1 EACH MISC MISCELLANE ONE (11:00)
[2016-11-19] MEDS ORDERED: ONDANSETRON ODT 4 MG TAB PO STA (12:45)
--- NOTE | 2016-11-19 15:23 | DS ---
DISCHARGE SUMMARY CHIEF COMPLAINT: Fever and headache. HISTORY OF PRESENT ILLNESS AND PHYSICAL EXAM: Details of this lady's history and physical can be found in the initial workup. LABORATORY STUDIES: While she was in a hospital she had laboratory studies, details which can be found in the laboratory section of her chart. COURSE IN HOSPITAL: After admission, she was placed on bed rest and started on intravenous fluids and empirically dosed antibiotics. Lumbar puncture suggests that she had a viral meningoencephalitis. While in the hospital temperature came down. Symptoms improved. She did have a spinal tap and her headache got a little bit worse after that, particularly upon standing. It was felt this likely represented a spinal headache. She is doing well on the and it was felt that she could go home and she will stay bed rest and drinking fluids and be seen in the office in 24 hours. If she continues to have difficulty with spinal headache, she may require blood patch. FINAL DIAGNOSIS: 1. Meningoencephalitis. 2. Attention-deficit disorder. OPERATIONS: None. CONSULTATION: None. She is improved. MMODL / IJN: [id number] /
== END 2016-11-19 12:56 | disposition home or self-care (01) ==
LOC: EC 16:40 → 6PED 22:42 → INTOOBSV 22:42
PROVIDERS: ADMIT Family Medicine; ATTEND Family Medicine
DX: A86 Unspecified viral encephalitis (principal); F90.9 Attention-deficit hyperactivity disorder, unspecified type; F17.200 Nicotine dependence, unspecified, uncomplicated; Z79.899 Other long term (current) drug therapy; J02.9 Acute pharyngitis, unspecified
CPT/HCPCS: 62270 ×2; 99285; 96365 ×2; 96361 ×2; 96375 ×5; 96367 ×2; 96366 ×3; 96376 ×2; 36415; 93005; 84157; 80053; 80048; 82945; 82150; 83605; 83690; 83735; 85025; 85610; 85730; 89050; 81001; 87040; 87070; 87086; 87205; 87081; 87430; 83615; 87502; 71020; 70470; 74177; G0378 ×4; J3370 ×2; J2270 ×2; J1200; J2360; J2930; J0696; J1885 ×2; Q9967; C9113

== ENCOUNTER 2016-11-20 10:34 | Emergency (ER) | payer OTHER ==
[2016-11-20 10:38] VITALS: RESP 18
[2016-11-20] MEDS ORDERED: SODIUM CHLORIDE 0.9% 1,000 ML IV STA (10:55)
[2016-11-20] MEDS ORDERED: HYDROmorphone 1 MG/ML 1 ML SYRINGE IVP STA (11:00)
[2016-11-20] MEDS ORDERED: ONDANSETRON 4 MG/2 ML VIAL IVP STA (11:04)
--- NOTE | 2016-11-20 11:10 | ED ---
General Adult HPI - General Chief complaint: Headache Stated complaint: spinal headache Time Seen by Provider: 11/20/16 10:35 Source: patient, RN notes reviewed Mode of arrival: wheelchair Limitations: no limitations - History of Present Illness Initial comments: This is a 26-year-old female presents emergency Department complaining of a headache. Patient states she was here on Thursday and released yesterday. Patient states while she was here she lumbar puncture to rule out meningitis. Patient states ever since then anytime she sits up the headache gets severe. Patient states that continues today and her doctor told her to come in to get a blood patch. Patient states she is mildly nauseous but she thinks is from the significant pain. Patient denies any fever chills. Patient denies any visual disturbance speech disturbance or numbness or weakness. Patient denies any fever or chills. Patient denies any neck stiffness . Patient denies any other symptoms at this time. - Related Data Home Medications Medication Instructions Recorded Confirmed Dextroamphetamine/Amphetamine 15 mg PO QAM 10/29/16 11/20/16 [Adderall Xr] Dextroamphetamine/Amphetamine 10 mg PO DAILY@1400 PRN 10/29/16 11/20/16 [Adderall] Previous Rx's Medication Instructions Recorded Ibuprofen [Motrin] 600 mg PO Q6HR PRN #20 tab 11/12/16 Butalb/Asprin/Caff 50-325-40Mg 1 - 2 cap PO Q4HR #20 capsule 11/19/16 [Fiorinal 50-325-40 MG] Allergies Allergy/AdvReac Type Severity Reaction Status Date / Time No Known Allergies Allergy Verified 11/20/16 11:10 Review of Systems ROS Statement: Those systems with pertinent positive or pertinent negative responses have been documented in the HPI. ROS Other: All systems not noted in ROS Statement are negative. Past Medical History Past Medical History: Asthma History of Any Multi-Drug Resistant Organisms: None Reported Additional Past Surgical History / Comment(s): foreign body removal from (R) foot Past Psychological History: ADD/ADHD Smoking Status: Current every day smoker Past Alcohol Use History: Rare Past Drug Use History: Marijuana - Past Family History Mother Family Medical History: No Reported History Father Family Medical History: No Reported History General Exam - General Exam Comments Initial Comments: GENERAL: Patient is well-developed and well-nourished. Patient is nontoxic and well- hydrated and is in moderate distress. Patient headache is increased with sitting up. ENT: Neck is soft and supple. No significant lymphadenopathy is noted. Oropharynx is clear. Moist mucous membranes. Neck has full range of motion without eliciting any pain. EYES: The sclera were anicteric and conjunctiva were pink and moist. Extraocular movements were intact and pupils were equal round and reactive to light. Eyelids were unremarkable. PULMONARY: Unlabored respirations. Good breath sounds bilaterally. CARDIOVASCULAR: There is a regular rate and rhythm without any murmurs gallops or rubs. ABDOMEN: Soft and nontender with normal bowel sounds. SKIN: Skin is clear with no lesions or rashes and otherwise unremarkable. NEUROLOGIC: Patient is alert and oriented x3. Cranial nerves II through XII are grossly intact. Motor and sensory are also intact. Normal speech, volume and content. Symmetrical smile. MUSCULOSKELETAL: Normal extremities with adequate strength and full range of motion. PSYCHIATRIC: Normal psychiatric evaluation. Limitations: no limitations Course Vital Signs 11/20/16 10:35 Temperature 98.1 F Pulse Rate 57 L Respiratory 18 Rate Blood Pressure 118/80 O2 Sat by Pulse 99 Oximetry Medical Decision Making - Medical Decision Making I called anesthesia anesthesia did a blood patch on the patient and she feels considerably better. Patient is able to sit up with only a mild headache. Disposition Clinical Impression: Spinal headache Disposition: HOME SELF-CARE Condition: Good Instructions: Acute Headache (ED) Additional Instructions: Patient should increase hydration and takes caffeine in during the day today. Referrals: Aries Espino MD [Primary Care Provider] - 1-2 days Time of Disposition: 12:20
--- NOTE | 2016-11-20 12:28 | P.PCN ---
Date of Procedure: 11/20/16 Procedure(s) Performed: Procedure= lumbar epidural blood patch. Preoperative diagnosis= postdural puncture headache. Postoperative diagnoses= post dural puncture headache. Indication for the procedure= patient developed headache after the diagnostic lumbar puncture,the headache persists in spite of conservative treatment, there is no focal neurological deficit, no fever, no neck stiffness, headache worse with sitting and standing position, and improved with lying supine, for this reason patient is a good candidate for epidural blood patch. anesthesia= IV sedation with Versed and fentanyl and local infiltration with lidocaine 1% 3 mL. Complications= none. Description of the procedure= patient identified risks and benefits of the procedure explained to the patient and patient agreed with proceeding, vital signs monitored during the procedure and IV sedation given to decrease anxiety, Back lumbar area prepped with chlorhexidine 3 times, then drape applied the local infiltration of the skin and subcutaneous tissue with lidocaine 1% 3 mL at L5-S1 interlaminar space then 18-gauge Tuohy needle advanced slowly at L5-S1 interlaminar space, There was positive loss of resistance to normal saline, no heme no paresthesia no cerebrospinal fluid, then after that 20 ML of the blood taken from the patient right upper extremity under strict sterile technique, and after the right wrist area prepped with a chlorhexidine 3 times using 20-gauge Angiocath, and under sterile technique the 20 ML of the block taken from the patient injected in the epidural space after negative aspiration for heme or CSF , and there was no paresthesia then the needle removed intact the skin cleaned and the , bandage applied and patient discharged home in stable condition after discharge criteria met,
[2016-11-20 12:42] VITALS: BP 121/69; PULSE 84; TEMP 97.2
== END 2016-11-20 12:42 | disposition home or self-care (01) ==
LOC: EC 10:34
DX: G97.1 Other reaction to spinal and lumbar puncture (principal); Y84.4 Aspiration of fluid as the cause of abnormal reaction of the patient, or of later complication, without mention of misadventure at the time of the procedure; F90.9 Attention-deficit hyperactivity disorder, unspecified type; F17.200 Nicotine dependence, unspecified, uncomplicated; Z79.899 Other long term (current) drug therapy
CPT/HCPCS: 99284 ×2; 96374 ×2; 96375 ×2; 96361 ×2; J2405; J1170

== ENCOUNTER → 2016-12-19 | Outpatient (CLI) | payer OTHER ==
--- NOTE | 2016-12-19 23:59 | MR ---
EXAMINATION TYPE: MR brain wo/w con DATE OF EXAM: 12/19/2016 COMPARISON: NONE HISTORY: Spinal headache, lt arm/leg pain, weakness TECHNIQUE: Multiplanar, multisequence images of the brain and brainstem is performed without and with IV contras t, utilizing 7.5 mL intravenous Gadavist . FINDINGS: Ventricles and sulci appear normal. There is no mass effect nor midline shift. There is no sign of intracranial hemorrhage. Douglas and white matter structures have normal signal pattern. There i s no evidence of cerebral edema. There is mild mucosal thickening in the left maxillary sinus. Brains tem appears normal. Sella turcica is normal. Corpus callosum is normal. Contrast images show no patho logic enhancement. IMPRESSION: Normal MR scan of the brain. Mild left maxillary sinusitis.
== END | disposition home or self-care (01) ==
LOC: RADMRIMAIN 19:10
PROVIDERS: ATTEND Family Medicine
DX: R51 Headache (principal); G97.1 Other reaction to spinal and lumbar puncture
CPT/HCPCS: 70553; A9581

== ENCOUNTER → 2018-05-06 | Outpatient (CLI) | payer MEDICAID ==
[2018-05-06 13:32] LABS: Basophils # (A) 0.1 k/uL (0-0.2); Basophils % (A) 1 %; Eosinophils # (A) 0.1 k/uL (0-0.7); Eosinophils % (A) 2 %; HCT 44.1 % (34.0-46.0); HGB 14.6 gm/dL (11.4-16.0); Lymphocytes # (A) 2.4 k/uL (1.0-4.8); Lymphocytes % (A) 27 %; MCH 27.8 pg (25.0-35.0); MCHC 33.1 g/dL (31.0-37.0); Mean Platelet Volume 6.7; Monocytes # (A) 0.4 k/uL (0-1.0); Monocytes % (A) 5 %; Neutrophils # (A) 5.6 k/uL (1.3-7.7); Neutrophils % (A) 64 %; Platelet Count 313 k/uL (150-450); RBC 5.25 m/uL (3.80-5.40); RDW 12.9 % (11.5-15.5); WBC 8.8 k/uL (3.8-10.6)
[2018-05-06 13:36] LABS: Anion Gap 7 mmol/L; Blood Urea Nitrogen 9 mg/dL (7-17); Calcium 9.7 mg/dL (8.4-10.2); Carbon Dioxide 23 mmol/L (22-30); Chloride 110 mmol/L (98-107); Glucose 97 mg/dL (74-99); Potassium 4.5 mmol/L (3.5-5.1); Sodium 140 mmol/L (137-145)
== END | disposition home or self-care (01) ==
LOC: LABPAT 13:07
PROVIDERS: ATTEND Obstetrics & Gynecology
DX: Z01.812 Encounter for preprocedural laboratory examination (principal)
CPT/HCPCS: 36415; 80048; 85025

== ENCOUNTER 2018-05-13 05:47 | Observation (INO) | payer MEDICAID, OTHER ==
[~2018-05-13 05:47] MED LIST: ceFAZolin IN SWFI 2 GM/20 ML SYRINGE IVP ONE
[2018-05-13] MEDS ORDERED: ONDANSETRON 4 MG/2 ML VIAL IVP ONE (05:48)
[2018-05-13] MEDS ORDERED: MIDAZOLAM (PF) 2 MG/2 ML VIAL IV PRN (05:48)
[2018-05-13] MEDS ORDERED: SCOPOLAMINE 1.5MG/72HR PATCH TRANSDERM ONE (05:48)
[2018-05-13] MEDS ORDERED: DEXAMETHASONE SOD PHOSPHATE 10 MG/ML 1 ML VIAL IV ONE (05:48)
[2018-05-13] MEDS ORDERED: LIDOCAINE 1% 20 ML VIAL (10MG/ML) FOR IV START INTRADERMA PRN (05:48)
[2018-05-13] MEDS: LACTATED RINGERS 1,000 ML IV SCH ×5 (06:48→22:36)
--- NOTE | 2018-05-13 06:48 | P.HPOB ---
History of Present Illness H&P Date: 05/13/18 Chief Complaint: pelvic pain 27 year old presents for TLH with da shira and diagnostic cystoscopy. She has monthly cyclic pain with menses. She has tried multiple hormonal methods which were unsuccessful and is now looking for definitive treatment. Review of Systems All systems: negative Constitutional: Denies chills, Denies fever Eyes: denies blurred vision, denies pain Ears, nose, mouth and throat: Denies headache, Denies sore throat Cardiovascular: Denies chest pain, Denies shortness of breath Respiratory: Denies cough Gastrointestinal: Denies abdominal pain, Denies diarrhea, Denies nausea, Denies vomiting Genitourinary: Denies dysuria, Denies hematuria Musculoskeletal: Denies myalgias Integumentary: Denies pruritus, Denies rash Neurological: Denies numbness, Denies weakness Psychiatric: Denies anxiety, Denies depression Endocrine: Denies fatigue, Denies weight change Past Medical History Past Medical History: Asthma Additional Past Medical History / Comment(s): severe pain with periods History of Any Multi-Drug Resistant Organisms: None Reported Additional Past Surgical History / Comment(s): foreign body removal from (R) foot Past Anesthesia/Blood Transfusion Reactions: No Reported Reaction Smoking Status: Current every day smoker - Past Family History Mother Family Medical History: No Reported History Father Family Medical History: No Reported History Medications and Allergies Home Medications Medication Instructions Recorded Confirmed Type No Known Home Medications 05/03/18 05/13/18 History Allergies Allergy/AdvReac Type Severity Reaction Status Date / Time No Known Allergies Allergy Verified 05/13/18 06:27 Exam Osteopathic Statement: *. No significant issues noted on an osteopathic structural exam other than those noted in the History and Physical/Consult. Heart: RRR Lungs: CTAB Abdomen: soft, nontender Extremeties: neg barb's Assessment and Plan (1) Dysmenorrhea Current Visit: Yes Status: Acute Code(s): N94.6 - DYSMENORRHEA, UNSPECIFIED SNOMED Code(s): 067935005 Plan: 1. TLH with da shira and diagnostic cystoscopy
[2018-05-13] MEDS ORDERED: PROPOFOL 10 MG/ML 20 ML VIAL IV ONE (07:11)
[2018-05-13] MEDS ORDERED: KETAMINE 10 MG/ML 20 ML VIAL ONE (07:11)
[2018-05-13] MEDS ORDERED: fentaNYL (PF) 50 MCG/ML 2 ML AMP ONE (07:11)
[2018-05-13] MEDS ORDERED: ROCURONIUM BROMIDE 10 MG/ML 10 ML VIAL IV ONE (07:11)
[2018-05-13] MEDS ORDERED: MIDAZOLAM 2 MG/2 ML VIAL ONE (07:11)
[2018-05-13] MEDS ORDERED: GLYCOPYRROLATE 0.2 MG/ML 2 ML VIAL ONE (07:11)
[2018-05-13] MEDS ORDERED: NEOSTIGMINE 1 MG/ML 10 ML VIAL ONE (07:11)
[2018-05-13] MEDS ORDERED: LIDOCAINE 1% INJ 10MG/ML (20 ML MDV) ONE (07:11)
[2018-05-13] MEDS ORDERED: BUPIVACAINE (PF) 0.5% 30 ML VIAL SQ ONE ×2 (07:42)
[2018-05-13] MEDS ORDERED: IV FLUID CONTINUATION 1,000 ML IV ONE ×4 (08:57→08:58)
--- NOTE | 2018-05-13 09:06 | P.OP ---
Date of Procedure: 05/13/18 Preoperative Diagnosis: 1. Dysmenorrhea Postoperative Diagnosis: 1. Dysmenorrhea Procedure(s) Performed: Total laparoscopic hysterectomy with da Karie and diagnostic cystoscopy Anesthesia: GIULIANO Surgeon: Brenna Nair Diplomatic Courier #1: Sidney Morgan Estimated Blood Loss (ml): 20 IV fluids (ml): 1,000 Urine output (ml): 100 Pathology: other (Uterus and cervix) Condition: stable Disposition: PACU Operative Findings: Normal appearing uterus, tubes, ovaries. Description of Procedure: Patient taken the operating room where general anesthesia was obtained without difficulty. She is prepped and draped in normal sterile fashion dorsal lithotomy position, legs placed in the Hudson stirrups. Weighted speculum placed in the vagina and the anterior lip the cervix was grasped with single-tooth tenaculum. The uterus sounded to 10 cm and the cervix diameter was 3.5 cm. The appropriate manipulator tip and ring were placed on the Anisha manipulator. The Anisha manipulator was then placed in the uterus. Owusu catheter was also placed. Attention was then turned to the abdomen and gloves were changed. A 5 mm supraumbilical incision was made the scalpel and a 5 mm optical trocar was placed under direct visualization. 10 cm to the right of this and 2 cm down a 5 mm incision was made and 8 mm da Karie port was placed under direct visualization. Same measurements on the opposite side of the patient's abdomen, the 5 mm incision was made and 8 mm da Karie port was placed under direct visualization. In the left upper quadrant a 10 mm incision was made and a 10 mm optical trocar was placed under direct visualization. The 5 mm optical trocar was then replaced with the 8 mm da Karie camera port. The robot was docked on patient's right side. The camera was introduced and then the monopolar curved scissor and [place] bipolar placed under direct visualization. I broke scrub and went to the physician console. The left utero-ovarian ligament was cauterized with the [place] bipolar and cut with monopolar curved scissors. The left round ligament was cauterized with the [place] bipolar and cut with monopolar curved scissors. The posterior leaf of the broad ligament was taken down using the monopolar curved scissors. Anterior leaf of the broad ligament was then taken down using the monopolar curved scissors. The uterine artery was cauterized with the [place] bipolar and cut with monopolar curved scissors. The bladder flap was then started using the monopolar curved scissors. Attention was then turned to the right side of the patient's anatomy and the right utero-ovarian ligament was cauterized with the [place] bipolar and cut with monopolar curved scissors. The right round ligament was cauterized with the [place] bipolar and cut with monopolar curved scissors. Posterior leaf of the broad ligament was taken down using the monopolar curved scissors and the anterior leaf was taken down using the monopolar curved scissors. The uterine artery was cauterized the [place] bipolar cut with monopolar curved scissors. The bladder flap was then finished on this side. Anterior colpotomy was made using the monopolar curved scissors. The rest of the uterus was from the vaginal cuff by following the ring around with the monopolar curved scissors through the uterosacral ligaments back to the anterior portion. Once the uterus and cervix were amputated they were pulled through the vaginal cuff. Hemostasis was assured. The instruments were changed for the Cardier forcep and the kemi suture cut. The vaginal cuff was then closed using O stratafix barbed suture in a running fashion. Hemostasis was again assured and the pelvis was irrigated. All instruments were removed from the abdomen and the robot was undocked. I scrubbed back in to perform a cystoscopy. There were jets from both ureteral orifices. The abdominal incisions were closed with 4-0 Vicryl in a subcuticular fashion. Patient tolerated the procedure well, sponge and instrument counts correct 2 and she was taken to recovery room in stable condition condition
[2018-05-13] MEDS: HYDROmorphone 0.5 MG/0.5 ML SYRINGE IVP PRN ×2 (09:11→09:19)
[2018-05-13] MEDS ORDERED: IBUPROFEN 600 MG TAB PO PRN (09:38)
[2018-05-13] MEDS ORDERED: SIMETHICONE 80 MG CHEWABLE PO PRN (09:38)
[2018-05-13] MEDS ORDERED: ONDANSETRON 4 MG/2 ML VIAL IVP PRN (09:38)
[2018-05-13] MEDS ORDERED: Acetaminophen-Codeine 300-30mg TAB PO PRN (09:38)
[2018-05-13 10:19] VITALS: BMI 34.0
[2018-05-13] MEDS: KETOROLAC 30 MG/ML 1 ML VIAL IVP PRN ×3 (10:45→22:29)
[2018-05-13] MEDS: Acetaminophen-Codeine 300-30mg TAB PO PRN (18:06)
[2018-05-13] MEDS: SENNOSIDES-DOCUSATE SODIUM 1 EACH TAB PO SCH (20:32)
[2018-05-14] MEDS: KETOROLAC 30 MG/ML 1 ML VIAL IVP PRN (06:30)
[2018-05-14] MEDS: LACTATED RINGERS 1,000 ML IV SCH (06:33)
[2018-05-14 07:58] LABS: Basophils % (A) 0 %; Eosinophils # (A) 0.1 k/uL (0-0.7); Eosinophils % (A) 1 %; HCT 35.5 % (34.0-46.0); HGB 12.2 gm/dL (11.4-16.0); Lymphocytes # (A) 2.9 k/uL (1.0-4.8); Lymphocytes % (A) 24 %; MCH 28.6 pg (25.0-35.0); MCHC 34.3 g/dL (31.0-37.0); MCV 83.5 fL (80.0-100.0); Mean Platelet Volume 7.4; Monocytes # (A) 0.4 k/uL (0-1.0); Monocytes % (A) 4 %; Neutrophils # (A) 8.3 k/uL (1.3-7.7); Neutrophils % (A) 70 %; Platelet Count 249 k/uL (150-450); RBC 4.26 m/uL (3.80-5.40); RDW 13.3 % (11.5-15.5); WBC 11.8 k/uL (3.8-10.6)
[2018-05-14 08:02] VITALS: BP 123/73; PULSE 70; RESP 12; TEMP 98.6
[2018-05-14] MEDS: Acetaminophen-Codeine 300-30mg TAB PO PRN (08:34)
[2018-05-14] MEDS: SENNOSIDES-DOCUSATE SODIUM 1 EACH TAB PO SCH (08:38)
--- NOTE | 2018-05-14 12:33 | P.DS ---
Providers Date of admission: 05/14/18 00:46 Expected date of discharge: 05/14/18 Attending physician: Brenna Nair Primary care physician: Maya Haas - Discharge Diagnosis(es) (1) Dysmenorrhea Status: Resolved (2) History of robot-assisted laparoscopic hysterectomy Status: Acute Hospital Course: Patient presented for total endoscopic hysterectomy with da Karie. She underwent this procedure without complication. She will be discharged home postoperative day #1 in stable condition to follow-up with me in 3 weeks. She is voiding and ambulating without difficulty, tolerating regular diet, passing flatus, incisions look clean, dry, intact. Plan - Discharge Summary Discharge Rx Participant: Yes New Discharge Prescriptions: New Ibuprofen [Motrin] 600 mg PO Q6HR PRN #30 tab PRN Reason: Mild Discomfort Acetaminophen-Codeine 300-30mg [Tylenol w/codeine #3] 2 each PO Q6HR PRN #24 tab PRN Reason: Severe Pain Discharge Medication List Acetaminophen-Codeine 300-30mg [Tylenol w/codeine #3] 2 each PO Q6HR PRN #24 tab 05/14/18 [Rx] Ibuprofen [Motrin] 600 mg PO Q6HR PRN #30 tab 05/14/18 [Rx] Follow up Appointment(s)/Referral(s): Brenna Nair DO [Doctor of Osteopathic Medicine] - 06/07/18 9:00 am Activity/Diet/Wound Care/Special Instructions: regular diet. fluids are always encouraged. no strenuous activity no heavy lifting ( about a milk jug) call office for any fever, chills, increased pain not controlled by pain meds, increased redness or discolored drainage from punctures sites, heavy vaginal bleeding, or any concerns. continue to use your incentive spirometery at home Last received 2 tylenol #3 at 0830 Last received toradol ( same family as motrin ) at 0630. nothing vaginally until ok with Dr Estefanía Dillon shower but no tub baths or soaks. no driving while taking narcotics. Discharge Disposition: HOME SELF-CARE
== END 2018-05-14 10:51 | disposition home or self-care (01) ==
LOC: OR 05:47 → 6PED 08:52 → OR 05-14 04:58
PROVIDERS: ADMIT Obstetrics & Gynecology; ATTEND Obstetrics & Gynecology
DX: N94.6 Dysmenorrhea, unspecified (principal); J45.909 Unspecified asthma, uncomplicated; F17.200 Nicotine dependence, unspecified, uncomplicated; N92.0 Excessive and frequent menstruation with regular cycle; D26.1 Other benign neoplasm of corpus uteri
CPT/HCPCS: 58570; S2900; 81025; 85025; 86850; 86900; 86901; 88307; 88341; 88342

== ENCOUNTER 2018-10-22 18:53 | Emergency (ER) | payer MEDICAID, OTHER ==
[2018-10-22 19:00] VITALS: RESP 18
--- NOTE | 2018-10-22 19:52 | ED ---
General Adult HPI - General Chief complaint: Psychiatric Symptoms Stated complaint: EPS eval Time Seen by Provider: 10/22/18 19:15 Source: patient Mode of arrival: ambulatory Limitations: no limitations - History of Present Illness Initial comments: Patient presents to the ED complaining of feeling depressed for the past 1-2 weeks. She also admits to having suicidal thoughts at times, but she states that she is not actively suicidal, and she denies having any suicidal plan. Patient denies suicidal attempt. Patient states she uses marijuana occasi onally. Patient denies any other illicit drug use. Patient also denies alcohol use. She denies medication abuse or overdose. She denies trauma or injury. Patient denies homicidal ideations, hallucinations, any pain, fever or chills, dyspnea, dizziness, nausea/vomiting, or any other symptoms or complaints. Patient states that she used to take medications for her depression, but she no longer does. - Related Data Home Medications Medication Instructions Recorded Confirmed Acetaminophen Tab [Tylenol Tab] 650 mg PO Q6H PRN 10/22/18 10/22/18 Melatonin 5 mg PO HS PRN 10/22/18 10/22/18 Allergies Allergy/AdvReac Type Severity Reaction Status Date / Time No Known Allergies Allergy Verified 10/22/18 19:45 Review of Systems ROS Statement: Those systems with pertinent positive or pertinent negative responses have been documented in the HPI. ROS Other: All systems not noted in ROS Statement are negative. Past Medical History Past Medical History: Asthma Additional Past Medical History / Comment(s): severe pain with periods History of Any Multi-Drug Resistant Organisms: None Reported Past Surgical History: Hysterectomy Additional Past Surgical History / Comment(s): foreign body removal from (R) foot Past Anesthesia/Blood Transfusion Reactions: No Reported Reaction Past Psychological History: ADD/ADHD, Bipolar, Depression Smoking Status: Current every day smoker Past Alcohol Use History: None Reported Past Drug Use History: Marijuana - Past Family History Father Family Medical History: Unable to Obtain General Exam Limitations: no limitations General appearance: alert, in no apparent distress Head exam: Present: atraumatic, normocephalic Eye exam: Present: normal appearance, PERRL, EOMI ENT exam: Present: mucous membranes dry Respiratory exam: Present: normal lung sounds bilaterally. Absent: respiratory distress, wheezes, rales, rhonchi Cardiovascular Exam: Present: regular rate, normal rhythm, normal heart sounds GI/Abdominal exam: Present: soft. Absent: distended, tenderness Neurological exam: Present: alert, oriented X3 Psychiatric exam: Present: depressed, anxious Skin exam: Present: warm, dry, intact Course Vital Signs 10/22/18 10/22/18 18:57 23:24 Temperature 99.4 F 98 F Pulse Rate 93 81 Respiratory 18 18 Rate Blood Pressure 126/86 112/81 O2 Sat by Pulse 100 98 Oximetry Medical Decision Making - Medical Decision Making Patient's POC breath alcohol level was 0. Patient's urine drug screen is only positive for marijuana. Patient denies being actively suicidal or having a suicidal plan. ED psychiatric nurse Rhonda has spoken with the patient extensively in the ED, and she states that the patient has agreed to follow-up as an outpatient with [facility]. She has provided the patient with referral information in the ED. I do not feel that the patient is an active threat for self-harm at this time. - Lab Data Lab Results 10/22/18 Range/Units 20:16 Urine Opiates Screen Not Detected (NotDetected) Ur Oxycodone Screen Not Detected (NotDetected) Urine Methadone Screen Not Detected (NotDetected) Ur Propoxyphene Screen Not Detected (NotDetected) Ur Barbiturates Screen Not Detected (NotDetected) U Tricyclic Antidepress Not Detected (NotDetected) Ur Phencyclidine Scrn Not Detected (NotDetected) Ur Amphetamines Screen Not Detected (NotDetected) U Methamphetamines Scrn Not Detected (NotDetected) U Benzodiazepines Scrn Not Detected (NotDetected) Urine Cocaine Screen Not Detected (NotDetected) U Marijuana (THC) Screen Detected H (NotDetected) Disposition Clinical Impression: Depression, Marijuana abuse Disposition: HOME SELF-CARE Condition: Stable Instructions (If sedation given, give patient instructions): Depression (ED) Additional Instructions: Follow-up with community mental health as advised in the ED by psychiatric nurse Rhonda. Return to the ER immediately if you developed worsening depression, thoughts of suicide, thoughts of hurting others, hallucinations, or new or worsening symptoms. Is patient prescribed a controlled substance at d/c from ED?: No Referrals: Maya Haas MD [Primary Care Provider] - 1-2 days Time of Disposition: 23:45
[2018-10-22 20:59] LABS: Amphetamine Screen,Urine Not Detected (NotDetected); Barbiturate Screen,Urine Not Detected (NotDetected); Benzodiazepines Screen,Urine Not Detected (NotDetected); Cocaine Screen,Urine Not Detected (NotDetected); Methadone Screen, Urine Not Detected (NotDetected); Opiate Screen,Urine Not Detected (NotDetected); Oxycodone Screen, Urine Not Detected (NotDetected); Phencyclidine Screen,Urine Not Detected (NotDetected); Tricyclic Antidepressant,Urine Not Detected (NotDetected); Urn Cannabinoid Scrn Detected (NotDetected)
[2018-10-22 23:25] VITALS: BP 112/81; PULSE 81; TEMP 98
== END 2018-10-22 23:59 | disposition home or self-care (01) ==
LOC: EC 18:53
DX: F31.30 Bipolar disorder, current episode depressed, mild or moderate severity, unspecified (principal); F12.10 Cannabis abuse, uncomplicated; R45.851 Suicidal ideations; F17.200 Nicotine dependence, unspecified, uncomplicated
CPT/HCPCS: 80306; 82075; 99285

== ENCOUNTER 2019-11-02 09:22 | Emergency (ER) | payer OTHER ==
[2019-11-02] MEDS ORDERED: KETOROLAC 15 MG/ML 1 ML VIAL IVP STA (09:38)
[2019-11-02] MEDS ORDERED: SODIUM CHLORIDE 0.9% 1,000 ML IV STA ×2 (09:38)
[2019-11-02] MEDS ORDERED: ONDANSETRON 4 MG/2 ML VIAL IVP STA ×2 (09:38→11:17)
--- NOTE | 2019-11-02 09:42 | ED ---
General Adult HPI - General Chief complaint: Abdominal Pain Stated complaint: UTI Time Seen by Provider: 11/02/19 09:26 Source: patient, RN notes reviewed, old records reviewed Mode of arrival: ambulatory Limitations: no limitations - History of Present Illness Initial comments: Patient is a 29-year-old female presents to the ER today for evaluation for right-sided flank pain. Patient believes that she had a UTI last week but was never treated. She went of dysuria and polyuria. Patient states that she's had a history of UTIs return to kidney infections. She reports that she's had chills but no recorded fevers at home. She also complains of nausea and vomiting starting today. Patient's had no history of kidney stones. - Related Data Previous Rx's Medication Instructions Recorded Cephalexin [Keflex] 500 mg PO Q6HR 10 Days #40 cap 11/02/19 Ibuprofen [Motrin] 600 mg PO Q8HR PRN #20 tab 11/02/19 Ondansetron Odt [Zofran Odt] 4 mg PO Q8HR PRN #12 tab 11/02/19 Allergies Allergy/AdvReac Type Severity Reaction Status Date / Time No Known Allergies Allergy Verified 11/02/19 09:23 Review of Systems ROS Statement: Those systems with pertinent positive or pertinent negative responses have been documented in the HPI. ROS Other: All systems not noted in ROS Statement are negative. Past Medical History Past Medical History: Asthma Additional Past Medical History / Comment(s): severe pain with periods History of Any Multi-Drug Resistant Organisms: None Reported Past Surgical History: Hysterectomy Additional Past Surgical History / Comment(s): foreign body removal from (R) foot Past Anesthesia/Blood Transfusion Reactions: No Reported Reaction Past Psychological History: ADD/ADHD, Bipolar, Depression Smoking Status: Current every day smoker Past Alcohol Use History: None Reported Past Drug Use History: Marijuana - Past Family History Father Family Medical History: Unable to Obtain General Exam - General Exam Comments Initial Comments: Alert and oriented 29-year-old female. The Patient appears in moderate discomfort. Limitations: no limitations General appearance: alert, in no apparent distress Head exam: Present: atraumatic, normocephalic, normal inspection Eye exam: Present: normal appearance, PERRL, EOMI. Absent: scleral icterus, conjunctival injection, periorbital swelling ENT exam: Present: normal exam, mucous membranes moist Neck exam: Present: normal inspection. Absent: tenderness, meningismus, lymphadenopathy Respiratory exam: Present: normal lung sounds bilaterally. Absent: respiratory distress, wheezes, rales, rhonchi, stridor Cardiovascular Exam: Present: regular rate, normal rhythm, normal heart sounds. Absent: systolic murmur, diastolic murmur, rubs, gallop, clicks GI/Abdominal exam: Present: soft, other (Patient has right-sided CVA tenderness) Extremities exam: Present: normal inspection, full ROM, normal capillary refill. Absent: tenderness, pedal edema, joint swelling, calf tenderness Back exam: Present: normal inspection Neurological exam: Present: alert, oriented X3, CN II-XII intact Psychiatric exam: Present: normal affect, normal mood Skin exam: Present: warm, dry, intact, normal color. Absent: rash Course Vital Signs 11/02/19 09:23 Temperature 99.0 F Pulse Rate 54 L Respiratory 16 Rate Blood Pressure 149/85 O2 Sat by Pulse 99 Oximetry Medical Decision Making - Medical Decision Making 21-year-old female presents with 1 week of dysuria complaining of right flank pa in today. She. In moderate discomfort. She is given IV fluids labwork obtained. She does have evidence of significant UTI. White blood cell count was within normal limits. Kidney functions uncompromised. Urine culture obtained. She is given 2 g of Rocephin. We'll discharge the Patient with oral antibiotic. Advised following up with PCP. Discussed return parameters. - Lab Data Result diagrams: 11/02/19 09:43 11/02/19 09:43 Lab Results 11/02/19 11/02/19 11/02/19 Range/Units 09:43 09:43 09:43 WBC 12.5 H (3.8-10.6) k/uL RBC 5.30 (3.80-5.40) m/uL Hgb 14.9 (11.4-16.0) gm/dL Hct 46.0 (34.0-46.0) % MCV 86.8 (80.0-100.0) fL MCH 28.2 (25.0-35.0) pg MCHC 32.5 (31.0-37.0) g/dL RDW 12.7 (11.5-15.5) % Plt Count 304 (150-450) k/uL Neutrophils % 74 % Lymphocytes % 19 % Monocytes % 4 % Eosinophils % 2 % Basophils % 1 % Neutrophils # 9.2 H (1.3-7.7) k/uL Lymphocytes # 2.4 (1.0-4.8) k/uL Monocytes # 0.4 (0-1.0) k/uL Eosinophils # 0.2 (0-0.7) k/uL Basophils # 0.1 (0-0.2) k/uL PT 10.0 (9.0-12.0) sec INR 1.0 (<1.2) APTT 25.5 (22.0-30.0) sec Sodium (137-145) mmol/L Potassium (3.5-5.1) mmol/L Chloride (98-107) mmol/L Carbon Dioxide (22-30) mmol/L Anion Gap mmol/L BUN (7-17) mg/dL Creatinine (0.52-1.04) mg/dL Est GFR (CKD-EPI)AfAm (>60 ml/min/1.73 sqM) Est GFR (CKD-EPI)NonAf (>60 ml/min/1.73 sqM) Glucose (74-99) mg/dL Calcium (8.4-10.2) mg/dL Total Bilirubin (0.2-1.3) mg/dL AST (14-36) U/L ALT (4-34) U/L Alkaline Phosphatase (38-126) U/L Troponin I (0.000-0.034) ng/mL Total Protein (6.3-8.2) g/dL Albumin (3.5-5.0) g/dL Amylase (30-110) U/L Lipase (23-300) U/L Urine Color Yellow Urine Appearance Cloudy H (Clear) Urine pH 5.5 (5.0-8.0) Ur Specific [place] 1.015 (1.001-1.035) Urine Protein 1+ H (Negative) Urine Glucose (UA) Negative (Negative) Urine Ketones Negative (Negative) Urine Blood Trace H (Negative) Urine Nitrite Negative (Negative) Urine Bilirubin Negative (Negative) Urine Urobilinogen <2.0 (<2.0) mg/dL Ur Leukocyte Esterase Large H (Negative) Urine RBC 8 H (0-5) /hpf Urine WBC >182 H (0-5) /hpf Ur Squamous Epith Cells 1 (0-4) /hpf Urine Bacteria Moderate H (None) /hpf Urine Mucus Occasional H (None) /hpf 11/02/19 11/02/19 Range/Units 09:43 09:43 WBC (3.8-10.6) k/uL RBC (3.80-5.40) m/uL Hgb (11.4-16.0) gm/dL Hct (34.0-46.0) % MCV (80.0-100.0) fL MCH (25.0-35.0) pg MCHC (31.0-37.0) g/dL RDW (11.5-15.5) % Plt Count (150-450) k/uL Neutrophils % % Lymphocytes % % Monocytes % % Eosinophils % % Basophils % % Neutrophils # (1.3-7.7) k/uL Lymphocytes # (1.0-4.8) k/uL Monocytes # (0-1.0) k/uL Eosinophils # (0-0.7) k/uL Basophils # (0-0.2) k/uL PT (9.0-12.0) sec INR (<1.2) APTT (22.0-30.0) sec Sodium 139 (137-145) mmol/L Potassium 4.1 (3.5-5.1) mmol/L Chloride 107 (98-107) mmol/L Carbon Dioxide 25 (22-30) mmol/L Anion Gap 7 mmol/L BUN 9 (7-17) mg/dL Creatinine 0.66 (0.52-1.04) mg/dL Est GFR (CKD-EPI)AfAm >90 (>60 ml/min/1.73 sqM) Est GFR (CKD-EPI)NonAf >90 (>60 ml/min/1.73 sqM) Glucose 92 (74-99) mg/dL Calcium 9.5 (8.4-10.2) mg/dL Total Bilirubin 0.5 (0.2-1.3) mg/dL AST 20 (14-36) U/L ALT 12 (4-34) U/L Alkaline Phosphatase 55 (38-126) U/L Troponin I <0.012 (0.000-0.034) ng/mL Total Protein 7.6 (6.3-8.2) g/dL Albumin 4.6 (3.5-5.0) g/dL Amylase 50 (30-110) U/L Lipase 167 (23-300) U/L Urine Color Urine Appearance (Clear) Urine pH (5.0-8.0) Ur Specific [place] (1.001-1.035) Urine Protein (Negative) Urine Glucose (UA) (Negative) Urine Ketones (Negative) Urine Blood (Negative) Urine Nitrite (Negative) Urine Bilirubin (Negative) Urine Urobilinogen (<2.0) mg/dL Ur Leukocyte Esterase (Negative) Urine RBC (0-5) /hpf Urine WBC (0-5) /hpf Ur Squamous Epith Cells (0-4) /hpf Urine Bacteria (None) /hpf Urine Mucus (None) /hpf - Radiology Data Radiology results: report reviewed KUB is unremarkable. Disposition Clinical Impression: Pyelonephritis Disposition: HOME SELF-CARE Condition: Good Instructions (If sedation given, give patient instructions): Flank Pain (ED), Kidney Infection (ED) Additional Instructions: Please use medication as discussed. Please follow up with family doctor if symptoms have not improved over the next two days. Please return to the emergency room if your symptoms increase or worsen or for any other concerns. Prescriptions: Cephalexin [Keflex] 500 mg PO Q6HR 10 Days #40 cap Ibuprofen [Motrin] 600 mg PO Q8HR PRN #20 tab PRN Reason: Pain Ondansetron Odt [Zofran Odt] 4 mg PO Q8HR PRN #12 tab PRN Reason: Is patient prescribed a controlled substance at d/c from ED?: No Referrals: Maya Haas MD [Primary Care Provider] - 1-2 days Time of Disposition: 11:16
[2019-11-02 10:07] LABS: Basophils # (A) 0.1 k/uL (0-0.2); Basophils % (A) 1 %; Eosinophils # (A) 0.2 k/uL (0-0.7); Eosinophils % (A) 2 %; HGB 14.9 gm/dL (11.4-16.0); Lymphocytes # (A) 2.4 k/uL (1.0-4.8); Lymphocytes % (A) 19 %; MCH 28.2 pg (25.0-35.0); MCHC 32.5 g/dL (31.0-37.0); MCV 86.8 fL (80.0-100.0); Monocytes # (A) 0.4 k/uL (0-1.0); Monocytes % (A) 4 %; Neutrophils # (A) 9.2 k/uL (1.3-7.7); Neutrophils % (A) 74 %; Platelet Count 304 k/uL (150-450); RDW 12.7 % (11.5-15.5); WBC 12.5 k/uL (3.8-10.6)
[2019-11-02 10:17] LABS: Partial Thromboplastin Time 25.5 sec (22.0-30.0)
[2019-11-02 10:23] LABS: Appearance,Urine Cloudy (Clear); Bacteria,Urine Moderate /hpf; Bilirubin,Urine Negative (Negative); Blood,Urine Trace (Negative); Color,Urine Yellow; Glucose,Urine (UA) Negative (Negative); Ketones,Urine Negative (Negative); Leukocyte Esterase,Urine Large (Negative); Mucus,Urine Occasional /hpf; Nitrite,Urine Negative (Negative); PH, Urine 5.5 (5.0-8.0); Protein,Urine 1+ (Negative); RBC,Urine 8 /hpf (0-5); Specific Gravity,Urine 1.015 (1.001-1.035); Squamous Epithelial Cell,Urine 1 /hpf (0-4); Urobilinogen,Urine <2.0 mg/dL (<2.0); WBC,Urine >182 /hpf (0-5)
[2019-11-02 10:25] LABS: ALT 12 U/L (4-34); AST 20 U/L (14-36); African American GFR (CKD) >90 (>60 ml/min/1.73 sqM); Albumin 4.6 g/dL (3.5-5.0); Alkaline Phosphatase 55 U/L (38-126); Amylase 50 U/L (30-110); Anion Gap 7 mmol/L; Blood Urea Nitrogen 9 mg/dL (7-17); Calcium 9.5 mg/dL (8.4-10.2); Carbon Dioxide 25 mmol/L (22-30); Chloride 107 mmol/L (98-107); Glucose 92 mg/dL (74-99); Non-African American GFR(CKD) >90 (>60 ml/min/1.73 sqM); Potassium 4.1 mmol/L (3.5-5.1); Sodium 139 mmol/L (137-145); Total Bilirubin 0.5 mg/dL (0.2-1.3); Total Protein 7.6 g/dL (6.3-8.2)
--- NOTE | 2019-11-02 10:30 | XR ---
EXAMINATION TYPE: XR KUB DATE OF EXAM: 11/02/2019 COMPARISON: NONE HISTORY: Nausea and vomiting TECHNIQUE: One view abdominal series FINDINGS: The osseous structures are intact. The bowel gas pattern is nonspecific. Lung bases are clear. IMPRESSION: 1. Nonspecific abdomen.
[2019-11-02] MEDS ORDERED: ACET/COD 300 MG/30 MG STARTER PACK 6 TAB BTL PO STA (11:17)
[2019-11-02 11:44] VITALS: BP 108/68; PULSE 57; RESP 18; TEMP 98.2
== END 2019-11-02 11:40 | disposition home or self-care (01) ==
LOC: EC 09:22
DX: N12 Tubulo-interstitial nephritis, not specified as acute or chronic (principal); F17.200 Nicotine dependence, unspecified, uncomplicated
CPT/HCPCS: 36415; 80053; 82150; 83690; 84484; 85025; 85610; 85730; 81001; 87086; 74018; 99284; 96365; 96375 ×2; 96376; 96361; J2405; J0696; J1885

== ENCOUNTER 2020-07-23 11:38 | Emergency (ER) | payer OTHER ==
[2020-07-23 11:45] VITALS: BP 126/95; PULSE 84; RESP 18; TEMP 97.9
[2020-07-23] MEDS ORDERED: KETOROLAC 15 MG/ML 1 ML VIAL IM STA (12:01)
[2020-07-23] MEDS ORDERED: LIDOCAINE 5% PATCH TOPICAL STA (12:01)
--- NOTE | 2020-07-23 12:19 | XR ---
EXAMINATION TYPE: XR pelvis AP view DATE OF EXAM: 07/23/2020 CLINICAL HISTORY: Fall injury with pain. TECHNIQUE: A single AP view of the pelvis is obtained. COMPARISON: CT abdomen and pelvis November 17, 2016. Pelvic x-ray August 08, 2014. FINDINGS: There is no acute fracture/dislocation evident in the pelvis. The hip and sacroiliac join ts remain symmetric and within normal limits. Scattered bilateral pelvic phleboliths redemonstrated. IMPRESSION: There is no acute fracture or dislocation in the pelvis.
--- NOTE | 2020-07-23 12:20 | ED ---
Back Pain HPI - General Chief Complaint: Back Pain/Injury Stated Complaint: fall off horse yesterday/left side injury Time Seen by Provider: 07/23/20 11:48 Source: patient Limitations: no limitations - History of Present Illness Initial Comments: 30-year-old female presents emergency Department with a chief complaint of left- sided pain. He states yesterday she fell off a horse and landed on the left sacral region. States she has localized tenderness but denies any radiation of the pain. States this is not her first fall and she believed the pain was initially go away, which she did but then it returned today. She reported taking [id number] analgesics with some improvement in symptoms. She denies any other paresthesias or weakness in the extremities at this time. Denies any saddle anesthesia, urinary retention with overflow or bowel incontinence. Denies head injuries. - Related Data Home Medications Medication Instructions Recorded Confirmed No Known Home Medications 07/23/20 07/23/20 Allergies Allergy/AdvReac Type Severity Reaction Status Date / Time No Known Allergies Allergy Verified 07/23/20 12:24 Review of Systems ROS Statement: Those systems with pertinent positive or pertinent negative responses have been documented in the HPI. ROS Other: All systems not noted in ROS Statement are negative. Past Medical History Past Medical History: Asthma Additional Past Medical History / Comment(s): severe pain with periods History of Any Multi-Drug Resistant Organisms: None Reported Past Surgical History: Hysterectomy Additional Past Surgical History / Comment(s): foreign body removal from (R) foot Past Anesthesia/Blood Transfusion Reactions: No Reported Reaction Past Psychological History: ADD/ADHD, Bipolar, Depression Smoking Status: Current every day smoker Past Alcohol Use History: None Reported Past Drug Use History: Marijuana - Past Family History Father Family Medical History: Unable to Obtain General Exam Limitations: no limitations General appearance: alert, in no apparent distress, obese Head exam: Present: atraumatic, normocephalic, normal inspection Eye exam: Present: normal appearance, PERRL, EOMI Pupils: Present: normal accommodation ENT exam: Present: normal exam, normal oropharynx, mucous membranes moist Neck exam: Present: normal inspection, full ROM. Absent: tenderness, lymphadenopathy Respiratory exam: Present: normal lung sounds bilaterally. Absent: respiratory distress Cardiovascular Exam: Present: regular rate, normal rhythm, normal heart sounds. Absent: systolic murmur GI/Abdominal exam: Present: soft. Absent: distended, tenderness Extremities exam: Present: normal inspection, full ROM, normal capillary refill, other (Palpable DP and PT bilaterally). Absent: tenderness, pedal edema, joint swelling, calf tenderness Back exam: Present: normal inspection, full ROM, tenderness, paraspinal tenderness (Tenderness over the left sacral region). Absent: vertebral tenderness Neurological exam: Present: alert, oriented X3 Psychiatric exam: Present: normal affect, normal mood Skin exam: Present: warm, dry, intact, normal color Course Vital Signs 07/23/20 11:43 Temperature 97.9 F Pulse Rate 84 Respiratory 18 Rate Blood Pressure 126/95 O2 Sat by Pulse 100 Oximetry Medical Decision Making - Medical Decision Making 30-year-old female presents to emergency Department with a chief complaint of left-sided pain. On physical examination, she is neurovascularly intact but has tenderness over the left sacral region. No tailbone tenderness. No head injuries after the fall. Patient was given Toradol and a Lidoderm patch with so me improvement in symptoms. I will discharge her with a Tylenol 3 starter pack and Flexeril. Advised to continue between Tylenol and Motrin. X-rays of the pelvis and lumbar spine are unremarkable. Return parameters were thoroughly discussed the patient is an attending agreeable. Case discussed with Dr. Rasheed. Disposition Clinical Impression: Mechanical back pain Disposition: HOME SELF-CARE Condition: Stable Instructions (If sedation given, give patient instructions): Acute Low Back Pain (ED) Additional Instructions: Please return to the Emergency Department if symptoms worsen or any other concerns. Is patient prescribed a controlled substance at d/c from ED?: No Referrals: None,Stated [Primary Care Provider] - 1-2 days Time of Disposition: 12:36
--- NOTE | 2020-07-23 12:20 | XR ---
EXAMINATION TYPE: XR lumbar spine 2 or 3V DATE OF EXAM: 07/23/2020 CLINICAL HISTORY: Pain after fall injury. TECHNIQUE: Frontal and lateral images of the lumbar spine are obtained. COMPARISON: Lumbar spine x-ray August 08, 2014. CT abdomen and pelvis November 17, 2016 FINDINGS: There are 5 lumbar type vertebral bodies redemonstrated. The lumbar spine shows stable an d satisfactory alignment without evidence of acute fracture or dislocation. Vertebral body heights an d disk space heights are within normal limits. The overlying soft tissue appears unremarkable. IMPRESSION: No acute fracture or dislocation is seen in the lumbar spine.
[2020-07-23] MEDS ORDERED: CYCLOBENZAPRINE 10MG STARTER 3 TAB BTL PO STA (12:30)
[2020-07-23] MEDS ORDERED: ACET/COD 300 MG/30 MG STARTER PACK 6 TAB BTL PO STA (12:30)
== END 2020-07-23 12:49 | disposition home or self-care (01) ==
LOC: EC 11:38
DX: M54.5 Low back pain (principal); J45.909 Unspecified asthma, uncomplicated; F41.9 Anxiety disorder, unspecified; F90.9 Attention-deficit hyperactivity disorder, unspecified type; F17.200 Nicotine dependence, unspecified, uncomplicated; F12.90 Cannabis use, unspecified, uncomplicated; V80.010A Animal-rider injured by fall from or being thrown from horse in noncollision accident, initial encounter
CPT/HCPCS: 72100; 72170; 99284; 96372; J1885

== ENCOUNTER 2021-01-15 12:40 | Emergency (ER) | payer OTHER ==
[2021-01-15 13:29] VITALS: BP 127/86; PULSE 76; RESP 19; TEMP 98.8
--- NOTE | 2021-01-15 16:21 | ED ---
General Adult HPI - General Chief complaint: Upper Respiratory Infection Stated complaint: sore throat/ear ache/headache/sent by pcp Time Seen by Provider: 01/15/21 15:47 Source: patient, RN notes reviewed, old records reviewed Mode of arrival: ambulatory Limitations: no limitations - History of Present Illness Initial comments: Patient was evaluated when she was placed in a room. Is a 30-year-old female with past medical history that is unremarkable presents emergency Department complaining of upper respiratory symptoms for the last day. Patient is a known Covid contact on the of last month. States that she began having upper history symptoms yesterday. This Is a Sore Throat, Upper Respiratory Congestion and and Nose, As Well As a Nonproductive Cough. Denies Any Shortness Breath, Chest Pain, Abdominal Pain, Nausea, Vomiting. Presents Emergency Department Further Evaluation. She Is Concerned She May Have Covid. Patient Was Not Va ccinated for COVID-19. - Related Data Previous Rx's Medication Instructions Recorded Acetaminophen Tab [Tylenol] 500 mg PO Q6H 7 Days #28 tablet 01/15/21 Albuterol Inhaler [Ventolin Hfa 1 puff INHALATION RT-QID #8 gm 01/15/21 Inhaler] Allergies Allergy/AdvReac Type Severity Reaction Status Date / Time No Known Allergies Allergy Verified 01/15/21 13:30 Review of Systems ROS Statement: Those systems with pertinent positive or pertinent negative responses have been documented in the HPI. Review of Systems: CONST: Denies fever EYES: Denies blurry vision ENT: Endorses nasal congestion C/V: Denies Chest pain RESP: Denies shortness of breath GI: Denies abdominal pain : Denies dysuria SKIN: Denies rash. MSK: Denies joint pain. NEURO: Denies headache ROS Other: All systems not noted in ROS Statement are negative. Past Medical History Past Medical History: Asthma Additional Past Medical History / Comment(s): severe pain with periods History of Any Multi-Drug Resistant Organisms: None Reported Past Surgical History: Hysterectomy Additional Past Surgical History / Comment(s): foreign body removal from (R) foot Past Anesthesia/Blood Transfusion Reactions: No Reported Reaction Past Psychological History: ADD/ADHD, Bipolar, Depression Smoking Status: Current every day smoker Past Alcohol Use History: None Reported Past Drug Use History: Marijuana - Past Family History Father Family Medical History: Unable to Obtain General Exam - General Exam Comments Initial Comments: General: Appears in no acute distress. HEAD: Normal with no signs of head trauma. EYES: PERRLA, EOMI, conjunctiva normal, no discharge. ENT: Hearing grossly intact, normal oropharynx. Acute rhinorrhea. RESPIRATORY: Clear breath sounds bilaterally. No wheezes, rales, or rhonchi. Not hypoxic. No increased work of breathing. C/V: Regular rate and rhythm. S1 and S2 auscultated, no edema, peripheral pulses 2+ and intact throughout ABD: Abd is soft, nontender, nondistended EXT: Normal range of motion, no obvious deformity SKIN: No rashes or lesions observed on exposed skin. NEURO: Alert and oriented 4. Limitations: no limitations Course Vital Signs 01/15/21 13:24 Temperature 98.8 F Pulse Rate 76 Respiratory 19 Rate Blood Pressure 127/86 O2 Sat by Pulse 99 Oximetry Medical Decision Making - Medical Decision Making Based on the patient's presentation and physical exam, she is a 30-year-old female is requesting COVID-19 testing with one day of symptoms. Chest was obtained in triage was found to be positive. She is not hypoxic is no increased breathing otherwise. I do not believe that imaging or laboratory studies are required at this time. I did offer the patient monoclonal antibody therapy. She did consent to therapy. We discussed quarantining until 2 days after symptoms started. She was in agreement with this plan. Patient received therapy. She tolerated therapy well. No reactions. Patient will be discharged home at this time. I will provide the patient with a prescription for albuterol, Tylenol. I instructed the patient to follow up with their PCP in the next 3 days . I explained that the patient should return to the emergency department if they experience any worsening symptoms. Strict return precautions were discussed with the patient. The patient expressed understanding of these instructions. I answered all questions that the patient had. The patient was discharged home in fair condition with their prescriptions and follow up information. - Lab Data Lab Results 01/15/21 Range/Units 13:30 Coronavirus (PCR) Detected A (Not Detectd) Disposition Clinical Impression: COVID-19 virus infection Disposition: HOME SELF-CARE Condition: Fair Additional Instructions: COVID 19 positive on 01/15/2021. Recommend Quarantining until at least 2 days following resolution of symptoms. Prescriptions: Acetaminophen Tab [Tylenol] 500 mg PO Q6H 7 Days #28 tablet Albuterol Inhaler [Ventolin Hfa Inhaler] 1 puff INHALATION RT-QID #8 gm Is patient prescribed a controlled substance at d/c from ED?: No Referrals: Yariel Pinzon DO [Primary Care Provider] - 1-2 days
[2021-01-15] MEDS ORDERED: SODIUM CHLORIDE 0.9% 50 ML IVPB ONE (16:30)
[2021-01-15] MEDS ORDERED: SOTROVIMAB (EUA) 500 MG in SODIUM CHLORIDE 0.9% 100 ML IVPB ONE (16:30)
== END 2021-01-15 18:22 | disposition home or self-care (01) ==
LOC: EC 12:40
DX: U07.1 COVID-19 (principal); J45.909 Unspecified asthma, uncomplicated; F90.9 Attention-deficit hyperactivity disorder, unspecified type; F31.9 Bipolar disorder, unspecified; F17.200 Nicotine dependence, unspecified, uncomplicated; F12.90 Cannabis use, unspecified, uncomplicated; Z90.710 Acquired absence of both cervix and uterus
CPT/HCPCS: 99283; 87635; Q0247

== ENCOUNTER 2021-02-08 09:20 | Emergency (ER) | payer OTHER ==
[2021-02-08 09:27] VITALS: RESP 18; TEMP 97.7
[2021-02-08] MEDS ORDERED: SODIUM CHLORIDE 0.9% 1,000 ML IV STA (10:01)
[2021-02-08] MEDS ORDERED: MORPHINE SULFATE 4 MG/ML SYRINGE IVP STA (10:02)
[2021-02-08] MEDS ORDERED: FAMOTIDINE 20 MG/2 ML VIAL IV STA (10:08)
--- NOTE | 2021-02-08 10:15 | XR ---
EXAMINATION TYPE: XR chest 2V DATE OF EXAM: 02/08/2021 COMPARISON: 11/17/2016 TECHNIQUE: PA and lateral views submitted. HISTORY: Chest pain FINDINGS: The lungs are clear and there is no pneumothorax, pleural effusion, or focal pneumonia. IMPRESSION: 1. No acute process.
[2021-02-08 10:23] LABS: Basophils % (A) 1 %; Eosinophils # (A) 0.1 k/uL (0-0.7); Eosinophils % (A) 2 %; HCT 44.3 % (34.0-46.0); HGB 14.9 gm/dL (11.4-16.0); Lymphocytes # (A) 1.6 k/uL (1.0-4.8); Lymphocytes % (A) 27 %; MCH 29.8 pg (25.0-35.0); MCHC 33.6 g/dL (31.0-37.0); MCV 88.6 fL (80.0-100.0); Mean Platelet Volume 7.2; Monocytes # (A) 0.2 k/uL (0-1.0); Monocytes % (A) 3 %; Neutrophils # (A) 4.1 k/uL (1.3-7.7); Neutrophils % (A) 67 %; Platelet Count 312 k/uL (150-450); WBC 6.2 k/uL (3.8-10.6)
[2021-02-08 10:34] LABS: Appearance,Urine Clear (Clear); Bilirubin,Urine Negative (Negative); Blood,Urine Negative (Negative); Color,Urine Yellow; Glucose,Urine (UA) Negative (Negative); Ketones,Urine Negative (Negative); Leukocyte Esterase,Urine Negative (Negative); Nitrite,Urine Negative (Negative); PH, Urine 5.5 (5.0-8.0); Protein,Urine Negative (Negative); Specific Gravity,Urine 1.024 (1.001-1.035); Urobilinogen,Urine <2.0 mg/dL (<2.0)
[2021-02-08 10:42] LABS: Partial Thromboplastin Time 25.8 sec (22.0-30.0); Prothrombin Time 10.5 sec (9.0-12.0)
--- NOTE | 2021-02-08 11:06 | ED ---
General Adult HPI - General Chief complaint: Chest Pain Stated complaint: chest pain Time Seen by Provider: 02/08/21 09:33 Source: patient Mode of arrival: wheelchair Limitations: no limitations - History of Present Illness Initial comments: 30-year-old female with a past medical history of asthma presents to the emergency room for chest pain. Patient states she has a sharp chest pain in the anterior chest. States that sometimes it radiates up to the left shoulder. States that symptoms worsen with movement and feel better with lying flat. Patient denies cough or congestion. Denies fevers or chills. Denies any shortness of breath.Patient has no other complaints at this time including shortness of breath, abdominal pain, nausea or vomiting, headache, or visual changes. - Related Data Home Medications Medication Instructions Recorded Confirmed Acetaminophen Tab [Tylenol] 500 mg PO Q6H PRN 02/08/21 02/08/21 Albuterol Inhaler [Ventolin Hfa 1 puff INHALATION RT-QID PRN 02/08/21 02/08/21 Inhaler] Previous Rx's Medication Instructions Recorded Famotidine [Pepcid] 20 mg PO BID #30 tablet 02/08/21 Allergies Allergy/AdvReac Type Severity Reaction Status Date / Time No Known Allergies Allergy Verified 02/08/21 11:05 Review of Systems ROS Statement: Those systems with pertinent positive or pertinent negative responses have been documented in the HPI. ROS Other: All systems not noted in ROS Statement are negative. Past Medical History Past Medical History: Asthma Additional Past Medical History / Comment(s): severe pain with periods History of Any Multi-Drug Resistant Organisms: None Reported Past Surgical History: Hysterectomy Additional Past Surgical History / Comment(s): foreign body removal from (R) foot Past Anesthesia/Blood Transfusion Reactions: No Reported Reaction Past Psychological History: ADD/ADHD, Bipolar, Depression Smoking Status: Current every day smoker Past Alcohol Use History: None Reported Past Drug Use History: Marijuana - Past Family History Father Family Medical History: Unable to Obtain General Exam Limitations: no limitations General appearance: alert, in no apparent distress Head exam: Present: atraumatic Eye exam: Present: normal appearance, PERRL, EOMI. Absent: scleral icterus, conjunctival injection ENT exam: Present: normal exam, mucous membranes moist Neck exam: Present: normal inspection, full ROM. Absent: tenderness Respiratory exam: Present: normal lung sounds bilaterally. Absent: respiratory distress, wheezes Cardiovascular Exam: Present: regular rate, normal rhythm, normal heart sounds GI/Abdominal exam: Present: soft, normal bowel sounds. Absent: distended, tenderness Neurological exam: Present: alert Course Vital Signs 02/08/21 09:22 Temperature 97.7 F Pulse Rate 77 Respiratory 18 Rate Blood Pressure 129/82 O2 Sat by Pulse 100 Oximetry EKG Findings - EKG Comments: EKG Findings:: Normal sinus rhythm, ventricular rate 67, WI interval 136, QTC 401 Medical Decision Making - Medical Decision Making Vitals are stable. CBC and CMP are unremarkable. Lipase minimally elevated at 307 but not significantly elevated. Urinalysis and hCG negative. COVID-19 is negative. Ultrasound of the gallbladder showed no abnormality. CTA of the chest was obtained given elevated d-dimer without evidence for acute pulmonary embolism. Patient was given pain medication and did have significant improvement. Pain could be related to a gastritis, we will start on Pepcid but otherwise she will need to follow up with primary care. I did discuss strict return parameters. - Lab Data Result diagrams: 02/08/21 10:03 02/08/21 10:34 Lab Results 02/08/21 02/08/21 02/08/21 Range/Units 10:02 10:03 10:03 WBC 6.2 (3.8-10.6) k/uL RBC 5.00 (3.80-5.40) m/uL Hgb 14.9 (11.4-16.0) gm/dL Hct 44.3 (34.0-46.0) % MCV 88.6 (80.0-100.0) fL MCH 29.8 (25.0-35.0) pg MCHC 33.6 (31.0-37.0) g/dL RDW 13.0 (11.5-15.5) % Plt Count 312 (150-450) k/uL MPV 7.2 Neutrophils % 67 % Lymphocytes % 27 % Monocytes % 3 % Eosinophils % 2 % Basophils % 1 % Neutrophils # 4.1 (1.3-7.7) k/uL Lymphocytes # 1.6 (1.0-4.8) k/uL Monocytes # 0.2 (0-1.0) k/uL Eosinophils # 0.1 (0-0.7) k/uL Basophils # 0.0 (0-0.2) k/uL PT 10.5 (9.0-12.0) sec INR 1.0 (<1.2) APTT 25.8 (22.0-30.0) sec D-Dimer 0.79 H (<0.60) mg/L FEU Sodium (137-145) mmol/L Potassium (3.5-5.1) mmol/L Chloride (98-107) mmol/L Carbon Dioxide (22-30) mmol/L Anion Gap mmol/L BUN (7-17) mg/dL Creatinine (0.52-1.04) mg/dL Est GFR (CKD-EPI)AfAm (>60 ml/min/1.73 sqM) Est GFR (CKD-EPI)NonAf (>60 ml/min/1.73 sqM) Glucose (74-99) mg/dL Calcium (8.4-10.2) mg/dL Magnesium (1.6-2.3) mg/dL Total Bilirubin (0.2-1.3) mg/dL AST (14-36) U/L ALT (4-34) U/L Alkaline Phosphatase (38-126) U/L Troponin I (0.000-0.034) ng/mL Total Protein (6.3-8.2) g/dL Albumin (3.5-5.0) g/dL Lipase (23-300) U/L Urine Color Yellow Urine Appearance Clear (Clear) Urine pH 5.5 (5.0-8.0) Ur Specific [place] 1.024 (1.001-1.035) Urine Protein Negative (Negative) Urine Glucose (UA) Negative (Negative) Urine Ketones Negative (Negative) Urine Blood Negative (Negative) Urine Nitrite Negative (Negative) Urine Bilirubin Negative (Negative) Urine Urobilinogen <2.0 (<2.0) mg/dL Ur Leukocyte Esterase Negative (Negative) Urine HCG, Qual (Not Detectd) Coronavirus (PCR) (Not Detectd) 02/08/21 02/08/21 02/08/21 Range/Units 10:03 10:03 10:34 WBC (3.8-10.6) k/uL RBC (3.80-5.40) m/uL Hgb (11.4-16.0) gm/dL Hct (34.0-46.0) % MCV (80.0-100.0) fL MCH (25.0-35.0) pg MCHC (31.0-37.0) g/dL RDW (11.5-15.5) % Plt Count (150-450) k/uL MPV Neutrophils % % Lymphocytes % % Monocytes % % Eosinophils % % Basophils % % Neutrophils # (1.3-7.7) k/uL Lymphocytes # (1.0-4.8) k/uL Monocytes # (0-1.0) k/uL Eosinophils # (0-0.7) k/uL Basophils # (0-0.2) k/uL PT (9.0-12.0) sec INR (<1.2) APTT (22.0-30.0) sec D-Dimer (<0.60) mg/L FEU Sodium (137-145) mmol/L Potassium (3.5-5.1) mmol/L Chloride (98-107) mmol/L Carbon Dioxide (22-30) mmol/L Anion Gap mmol/L BUN (7-17) mg/dL Creatinine (0.52-1.04) mg/dL Est GFR (CKD-EPI)AfAm (>60 ml/min/1.73 sqM) Est GFR (CKD-EPI)NonAf (>60 ml/min/1.73 sqM) Glucose (74-99) mg/dL Calcium (8.4-10.2) mg/dL Magnesium (1.6-2.3) mg/dL Total Bilirubin (0.2-1.3) mg/dL AST (14-36) U/L ALT (4-34) U/L Alkaline Phosphatase (38-126) U/L Troponin I <0.012 (0.000-0.034) ng/mL Total Protein (6.3-8.2) g/dL Albumin (3.5-5.0) g/dL Lipase (23-300) U/L Urine Color Urine Appearance (Clear) Urine pH (5.0-8.0) Ur Specific [place] (1.001-1.035) Urine Protein (Negative) Urine Glucose (UA) (Negative) Urine Ketones (Negative) Urine Blood (Negative) Urine Nitrite (Negative) Urine Bilirubin (Negative) Urine Urobilinogen (<2.0) mg/dL Ur Leukocyte Esterase (Negative) Urine HCG, Qual Not Detected (Not Detectd) Coronavirus (PCR) Not Detected (Not Detectd) 02/08/21 Range/Units 10:34 WBC (3.8-10.6) k/uL RBC (3.80-5.40) m/uL Hgb (11.4-16.0) gm/dL Hct (34.0-46.0) % MCV (80.0-100.0) fL MCH (25.0-35.0) pg MCHC (31.0-37.0) g/dL RDW (11.5-15.5) % Plt Count (150-450) k/uL MPV Neutrophils % % Lymphocytes % % Monocytes % % Eosinophils % % Basophils % % Neutrophils # (1.3-7.7) k/uL Lymphocytes # (1.0-4.8) k/uL Monocytes # (0-1.0) k/uL Eosinophils # (0-0.7) k/uL Basophils # (0-0.2) k/uL PT (9.0-12.0) sec INR (<1.2) APTT (22.0-30.0) sec D-Dimer (<0.60) mg/L FEU Sodium 138 (137-145) mmol/L Potassium 4.2 (3.5-5.1) mmol/L Chloride 107 (98-107) mmol/L Carbon Dioxide 22 (22-30) mmol/L Anion Gap 9 mmol/L BUN 8 (7-17) mg/dL Creatinine 0.56 (0.52-1.04) mg/dL Est GFR (CKD-EPI)AfAm >90 (>60 ml/min/1.73 sqM) Est GFR (CKD-EPI)NonAf >90 (>60 ml/min/1.73 sqM) Glucose 94 (74-99) mg/dL Calcium 9.2 (8.4-10.2) mg/dL Magnesium 1.9 (1.6-2.3) mg/dL Total Bilirubin 0.5 (0.2-1.3) mg/dL AST 20 (14-36) U/L ALT 13 (4-34) U/L Alkaline Phosphatase 51 (38-126) U/L Troponin I (0.000-0.034) ng/mL Total Protein 6.9 (6.3-8.2) g/dL Albumin 4.0 (3.5-5.0) g/dL Lipase 307 H (23-300) U/L Urine Color Urine Appearance (Clear) Urine pH (5.0-8.0) Ur Specific [place] (1.001-1.035) Urine Protein (Negative) Urine Glucose (UA) (Negative) Urine Ketones (Negative) Urine Blood (Negative) Urine Nitrite (Negative) Urine Bilirubin (Negative) Urine Urobilinogen (<2.0) mg/dL Ur Leukocyte Esterase (Negative) Urine HCG, Qual (Not Detectd) Coronavirus (PCR) (Not Detectd) Disposition Clinical Impression: Atypical chest pain Disposition: HOME SELF-CARE Condition: Good Instructions (If sedation given, give patient instructions): Chest Pain (ED) Additional Instructions: Please take medication as directed. Follow-up with primary care on Thursday. If you're having worsening symptoms return to the emergency room. Prescriptions: Famotidine [Pepcid] 20 mg PO BID #30 tablet Is patient prescribed a controlled substance at d/c from ED?: No Referrals: Yariel Pinzon DO [Primary Care Provider] - 1-2 days Time of Disposition: 13:18
[2021-02-08 11:16] LABS: ALT 13 U/L (4-34); AST 20 U/L (14-36); African American GFR (CKD) >90 (>60 ml/min/1.73 sqM); Alkaline Phosphatase 51 U/L (38-126); Anion Gap 9 mmol/L; Blood Urea Nitrogen 8 mg/dL (7-17); Calcium 9.2 mg/dL (8.4-10.2); Carbon Dioxide 22 mmol/L (22-30); Chloride 107 mmol/L (98-107); Glucose 94 mg/dL (74-99); Lipase 307 U/L (23-300); Magnesium 1.9 mg/dL (1.6-2.3); Non-African American GFR(CKD) >90 (>60 ml/min/1.73 sqM); Potassium 4.2 mmol/L (3.5-5.1); Sodium 138 mmol/L (137-145); Total Bilirubin 0.5 mg/dL (0.2-1.3); Total Protein 6.9 g/dL (6.3-8.2)
--- NOTE | 2021-02-08 11:38 | CT ---
EXAMINATION TYPE: CT chest angio for PE DATE OF EXAM: 02/08/2021 COMPARISON: None HISTORY: Chest pain CT DLP: 524.7 mGycm CONTRAST: CT chest with contrast and 3D reconstruction with MIP imaging is performed with IV Contrast, patient injected with 91 mL of Isovue 370. Contrast-enhanced CT of the chest was performed through the course of the pulmonary arteries with day g and mediastinal window settings submitted. 3D reconstruction with MIP imaging was also performed. PULMONARY ARTERIES: The pulmonary arteries and their major tributaries are patent. I do not see yusef dence for sizable filling defect to suggest pulmonary embolic process. LUNGS: The lungs are clear and free of infiltrate. No evidence for atelectasis. No pulmonary nodule or mass is detected. No pleural effusion. MEDIASTINUM: Residual thymic tissue within the anterior mediastinum. Thoracic aorta is of normal luis iber,however, evaluation is limited given timing of the contrast bolus. The heart is not enlarged. N o evidence for mediastinal mass. No mediastinal lymph nodes greater than 1cm. HILAR STRUCTURES: No evidence for mass. No hilar lymph nodes greater than 1 cm. UPPER ABDOMEN: No significant abnormality is seen. IMPRESSION: 1. No evidence for Pulmonary embolism at this time.
[2021-02-08] MEDS ORDERED: KETOROLAC 15 MG/ML 1 ML VIAL IVP STA (12:13)
--- NOTE | 2021-02-08 12:18 | US ---
EXAMINATION TYPE: US gallbladder DATE OF EXAM: 02/08/2021 COMPARISON: 08/21/1999 CLINICAL HISTORY: pain. EXAM MEASUREMENTS: Liver Length: 12.5 cm Gallbladder Wall: 0.2 cm CBD: 0.2 cm Right Kidney: 10.4 x 4.7 x 5.5 cm Pancreas: Obscured by bowel gas Liver: wnl Gallbladder: wnl Evidence for sonographic Parker's sign: no CBD: wnl Right Kidney: No hydronephrosis or masses seen IMPRESSION: 1. No diagnostic evidence of acute process.
[2021-02-08 13:30] VITALS: BP 122/85; PULSE 58
== END 2021-02-08 13:30 | disposition home or self-care (01) ==
LOC: EC 09:20
DX: R07.89 Other chest pain (principal); Z20.822 Contact with and (suspected) exposure to COVID-19; J45.909 Unspecified asthma, uncomplicated; F17.200 Nicotine dependence, unspecified, uncomplicated; F12.90 Cannabis use, unspecified, uncomplicated; Z79.51 Long term (current) use of inhaled steroids; Z79.899 Other long term (current) drug therapy
CPT/HCPCS: 36415; 93005; 85379; 80053; 83690; 83735; 84484; 85025; 85610; 85730; 81003; 81025; 87635; 71046; 76705; 71275; 99285; 96374; 96375 ×2; 96361 ×2; J2270; J1885; Q9967

== ENCOUNTER 2021-06-05 08:41 | Emergency (ER) | payer OTHER ==
[2021-06-05 08:46] VITALS: RESP 18
--- NOTE | 2021-06-05 09:37 | ED ---
URI HPI - General Chief Complaint: Upper Respiratory Infection Stated Complaint: NVD/Fever Time Seen by Provider: 06/05/21 08:49 Source: patient, RN notes reviewed Mode of arrival: ambulatory Limitations: no limitations - History of Present Illness Initial Comments: 30-year-old female presents emergency Department with chief complaint of fever chills cough congestion body aches. Patient states that she has had some nausea. She does admit that her daughter tested positive for influenza A is concerned she may have some her symptoms. Patient denies any abdominal pain states that she has a runny nose, sore throat mild, no shortness of breath - Related Data Home Medications Medication Instructions Recorded Confirmed Acetaminophen Tab [Tylenol] 1,000 mg PO Q6H PRN 02/08/21 06/05/21 Ibuprofen [Motrin Ib] 400 mg PO Q6H PRN 06/05/21 06/05/21 Allergies Allergy/AdvReac Type Severity Reaction Status Date / Time No Known Allergies Allergy Verified 06/05/21 09:35 Review of Systems ROS Statement: Those systems with pertinent positive or pertinent negative responses have been documented in the HPI. ROS Other: All systems not noted in ROS Statement are negative. Past Medical History Past Medical History: Asthma Additional Past Medical History / Comment(s): severe pain with periods History of Any Multi-Drug Resistant Organisms: None Reported Past Surgical History: Hysterectomy Additional Past Surgical History / Comment(s): foreign body removal from (R) foot Past Anesthesia/Blood Transfusion Reactions: No Reported Reaction Past Psychological History: ADD/ADHD, Bipolar, Depression Smoking Status: Current every day smoker Past Alcohol Use History: None Reported Past Drug Use History: Marijuana - Past Family History Father Family Medical History: Unable to Obtain General Exam Limitations: no limitations General appearance: alert, in no apparent distress Head exam: Present: atraumatic, normocephalic, normal inspection Eye exam: Present: normal appearance, PERRL, EOMI. Absent: scleral icterus, conjunctival injection, periorbital swelling ENT exam: Present: normal exam, normal oropharynx, mucous membranes moist Neck exam: Present: normal inspection, full ROM. Absent: tenderness, meningismus, lymphadenopathy Respiratory exam: Present: normal lung sounds bilaterally. Absent: respiratory distress, wheezes, rales, rhonchi, stridor Cardiovascular Exam: Present: regular rate, normal rhythm, normal heart sounds. Absent: systolic murmur, diastolic murmur, rubs, gallop, clicks GI/Abdominal exam: Present: soft, normal bowel sounds. Absent: distended, tenderness, guarding, rebound, rigid Course Vital Signs 06/05/21 06/05/21 08:42 09:51 Temperature 97.6 F 97.7 F Pulse Rate 65 65 Respiratory 18 18 Rate Blood Pressure 110/83 117/93 O2 Sat by Pulse 100 99 Oximetry Medical Decision Making - Medical Decision Making 30-year-old presented for fever cough congestion bodies. Patient's covid 19 positive. Patientin no signs of distress, will be discharged in stable condition return parameters were discussed. - Lab Data Lab Results 06/05/21 06/05/21 Range/Units 09:44 09:44 Coronavirus (PCR) Detected A (Not Detectd) Influenza Type A RNA Not Detected (Not Detectd) Influenza Type B (PCR) Not Detected (Not Detectd) Disposition Clinical Impression: COVID-19 Disposition: HOME SELF-CARE Condition: Stable Instructions (If sedation given, give patient instructions): COVID-19 (Coronavirus Disease 2019) (ED) Additional Instructions: Please return to the Emergency Department if symptoms worsen or any other concerns. Is patient prescribed a controlled substance at d/c from ED?: No Referrals: None,Stated [Primary Care Provider] - 1-2 days Time of Disposition: 10:30
[2021-06-05 09:54] VITALS: TEMP 97.7
[2021-06-05 11:13] VITALS: BP 114/86; PULSE 67
== END 2021-06-05 11:11 | disposition home or self-care (01) ==
LOC: EC 08:41
DX: U07.1 COVID-19 (principal); J45.909 Unspecified asthma, uncomplicated; F90.9 Attention-deficit hyperactivity disorder, unspecified type; F31.9 Bipolar disorder, unspecified; F17.200 Nicotine dependence, unspecified, uncomplicated; F12.90 Cannabis use, unspecified, uncomplicated; Z90.710 Acquired absence of both cervix and uterus
CPT/HCPCS: 87502; 87635; 99283